=== PATIENT | female | born 1965 | race Caucasian/White ===

== ENCOUNTER 2019-11-14 14:08 | Inpatient (IN) | payer MEDICARE, OTHER ==
[~2019-11-14] VITALS: Ht 167.6 cm; Wt 81.6 kg
--- NOTE | 2019-11-14 14:21 | NUR ---
Patient brought in by ambulance from [facility] for c/o of pain with urination. Patient alert and oriented x 4. 0n 02 at 2L via NC. Patient c/o of pain on catheter insertion site and pain when urinating. Urine noted clear orange. Pt is bed bound. No acute distress.
--- NOTE | 2019-11-14 14:23 | NUR ---
Dr. Sapp at bedside examining pt.
[2019-11-14] MEDS ORDERED: IV NORMAL SALINE 1000 ML BAG IV ONE (14:30)
[2019-11-14 14:57] LABS: BASOPHILS # (AUTO) 0.1 K/uL (0.0-8.0); BASOPHILS % (AUTO) 0.6 % (0.0-2.0); EOSINOPHILS # (AUTO) 0.1 K/uL (0.0-0.7); EOSINOPHILS % (AUTO) 0.5 % (0.0-7.0); HEMATOCRIT 43.9 % (31.2-41.9); HEMOGLOBIN 14.5 g/dL (10.9-14.3); LYMPHOCYTES # (AUTO) 2.3 K/uL (20.0-40.0); LYMPHOCYTES % (AUTO) 12.6 % (20.5-51.5); MEAN CORPUSCULAR HEMOGLOBIN 29.2 uug (24.7-32.8); MEAN CORPUSCULAR HGB CONC 33 g/dL (32.3-35.6); MEAN CORPUSCULAR VOLUME 88.4 fL (75.5-95.3); MONOCYTES # (AUTO) 0.9 K/uL (2.0-10.0); MONOCYTES % (AUTO) 5.1 % (0.0-11.0); NEUTROPHILS # (AUTO) 15.1 K/uL (1.8-8.9); NEUTROPHILS % (AUTO) 81.2 % (38.5-71.5); PLATELET COUNT (AUTO) 292 K/uL (179-408); RED BLOOD CELL COUNT(AUTO) 4.97 MIL/uL (3.63-4.92); WHITE BLOOD COUNT (AUTO) 18.6 K/uL (3.8-11.8)
[2019-11-14 15:02] LABS: *BILIRUBIN,URIN NEGATIVE (NEGATIVE); *CLARITY,URINE CLEAR (CLEAR); *COLOR,URINE Orange (YELLOW); *KETONES,URINE TRACE (NEGATIVE); LEUKOCYTE ESTERASE ,URINE TRACE (NEGATIVE); NITRITE, URINE POSITIVE (NEGATIVE); PH,URINE 5.5 (5.0-8.0); UGLUCOSE TRACE (NEGATIVE)
[2019-11-14 15:09] LABS: BILIRUBIN,DIRECT 0.1 mg/dL (0.0-0.2); BILIRUBIN,TOTAL 0.3 mg/dL (0.2-1.0); CREATININE 0.7 mg/dL (0.6-1.3); POTASSIUM 4.6 mmol/L (3.5-5.1); TOTAL PROTEIN, SERUM 7.7 g/dL (6.4-8.2)
[2019-11-14 15:17] LABS: *BLOOD, URINE TRACE (NEGATIVE)
[2019-11-14] MEDS ORDERED: PIPERACILLIN/TAZOBACTAM/D5W 50 ML IV ONE (15:28)
[2019-11-14] MEDS ORDERED: VANCOMYCIN IV 200 ML ONE (15:29)
[2019-11-14] MEDS ORDERED: PIPERACILLIN SODIUM/TAZOBACTAM 3.375 G in IV DEXTROSE 5% 50 ML IV ONE (15:30)
[2019-11-14] MEDS ORDERED: VANCOMYCIN IV 1,000 MG in IV DEXTROSE 5% 250 ML IV ONE (15:30)
[2019-11-14 15:51] LABS: BACTERIA,URINE FEW /HPF (NONE SEEN); SQUAMOUS EPITHELIAL CELL,UR FEW /HPF (NONE SEEN)
--- NOTE | 2019-11-14 16:05 | NUR ---
Pt c/o of pain on Rt forearm IV site, IV site changed to Lt forearm by Lalito MONTERO
--- NOTE | 2019-11-14 16:07 | NUR ---
Per Dr. Sapp to not give Vancomycin and only give Zosyn. Per Dr. Sapp, "[place] doesn't want it."
--- NOTE | 2019-11-14 16:23 | NUR ---
Attempted to give report to tele, per Netta, the CN will take report and will "call you back."
--- NOTE | 2019-11-14 16:33 | NUR ---
SBAR report given to Kathryn in Telemetry unit.
--- NOTE | 2019-11-14 16:53 | NUR ---
Patient was transferred to Telemetry floor in stable condition.
[2019-11-14 17:00] VITALS: BP 143/76
[2019-11-14] MEDS ORDERED: ACETAMINOPHEN 325 MG TABLET PO PRN (18:30)
[2019-11-14] MEDS ORDERED: MAGNESIUM HYDROXIDE 30 ML LIQUID UDC PO PRN (18:30)
[2019-11-14] MEDS ORDERED: ONDANSETRON HCL 4 MG TABLET PO PRN (18:30)
[2019-11-14] MEDS ORDERED: FLEET ENEMA 133 ML BOTTLE RC PRN (18:30)
[2019-11-14] MEDS ORDERED: BISACODYL 10 MG SUPP.RECT RC PRN (18:30)
--- NOTE | 2019-11-14 18:34 | NUR ---
Patient was admitted from ER via [facility] with Diagnosis of UTI, early sepsis on telemetry under Dr. Simmons. patient is awake, alert and verbally responsive. No signs of distress noted. No SOB. on Oxygen at 2LPM via nasal Canula, No complain of pain or discomfort at this time. Head toe toe assessment was done. Skin is Intact. Kept comfortable. Kept the call light within easy reach. Will endorse to Oncoming Nurse.
--- NOTE | 2019-11-14 19:30 | NUR ---
Received patient awake and alert in bed, A/Ox4. No signs of acute distress noted. Complains of pain, no SOB. Heplock on the left forearm is intact and patent. Poe is intact, draining orange urine. Patient is bedbound, says she tries to get up with PT at facility, asked patient if she wants me to order PT, but patient says she feels weak right now so request to order PT when feeling better. Safety measures initiated. Bed is low and locked, call light within reach. Will continue to monitor.
[2019-11-14] MEDS: SENNOSIDES 1 TABLET PO SCH (20:39)
[2019-11-14] MEDS: DIAZEPAM 5 MG TABLET PO SCH (20:39)
[2019-11-14] MEDS: CARISOPRODOL 350 MG TABLET PO SCH (20:39)
[2019-11-14] MEDS: CEFTRIAXONE 1 G in IV DEXTROSE 5% 50 ML IV SCH (20:50)
[2019-11-14] MEDS ORDERED: DIAZEPAM 5 MG PO SCH (21:00)
[2019-11-14 21:28] VITALS: BP 136/88
[2019-11-14] MEDS: HYDROCODONE/APAP 5-325MG TABLET PO PRN (22:03)
[2019-11-15 00:56] VITALS: BP 136/74
[2019-11-15 04:39] VITALS: BP 129/63
[2019-11-15] MEDS: PANTOPRAZOLE SODIUM 40 MG TABLET.DR PO SCH (06:24)
[2019-11-15 06:52] LABS: BASOPHILS # (AUTO) 0.1 K/uL (0.0-8.0); BASOPHILS % (AUTO) 0.9 % (0.0-2.0); EOSINOPHILS # (AUTO) 0.1 K/uL (0.0-0.7); EOSINOPHILS % (AUTO) 1.1 % (0.0-7.0); HEMATOCRIT 40.2 % (31.2-41.9); HEMOGLOBIN 12.9 g/dL (10.9-14.3); LYMPHOCYTES # (AUTO) 4.6 K/uL (20.0-40.0); LYMPHOCYTES % (AUTO) 33.5 % (20.5-51.5); MEAN CORPUSCULAR HEMOGLOBIN 28.7 uug (24.7-32.8); MEAN CORPUSCULAR HGB CONC 32 g/dL (32.3-35.6); MEAN CORPUSCULAR VOLUME 89.2 fL (75.5-95.3); MONOCYTES # (AUTO) 0.9 K/uL (2.0-10.0); MONOCYTES % (AUTO) 6.4 % (0.0-11.0); NEUTROPHILS # (AUTO) 7.9 K/uL (1.8-8.9); NEUTROPHILS % (AUTO) 58.1 % (38.5-71.5); PLATELET COUNT (AUTO) 263 K/uL (179-408); RED BLOOD CELL COUNT(AUTO) 4.51 MIL/uL (3.63-4.92); WHITE BLOOD COUNT (AUTO) 13.6 K/uL (3.8-11.8)
[2019-11-15 07:17] LABS: THYROID STIMULATING HORMONE 2.606 mIU/mL (0.358-3.740)
[2019-11-15 07:19] LABS: BILIRUBIN,TOTAL 0.2 mg/dL (0.2-1.0); CREATININE 0.5 mg/dL (0.6-1.3); MAGNESIUM 2.1 mg/dL (1.8-2.4); PHOSPHOROUS 4.2 mg/dL (2.5-4.9); TOTAL PROTEIN, SERUM 6.5 g/dL (6.4-8.2)
[2019-11-15 07:58] VITALS: BP 148/81
--- NOTE | 2019-11-15 08:00 | NUR ---
Pt alert and oriented x 4. Pt is in no acute distress. Discussed plan of care with patient re: fall precaution and aspiration precaution. Call light is within reach.
[2019-11-15] MEDS: ACIDOPHILUS/BULGARICUS CHEW TAB PO SCH (08:19)
[2019-11-15] MEDS: DIAZEPAM 5 MG TABLET PO SCH ×4 (08:20→20:07)
[2019-11-15] MEDS: SERTRALINE HCL 50 MG TABLET PO SCH (08:20)
[2019-11-15] MEDS: CYCLOBENZAPRINE HCL 10 MG TABLET PO SCH ×2 (08:20→17:04)
[2019-11-15] MEDS: MULTIVIT, IRON, MIN NO. 8, FA TABLET PO SCH (08:20)
[2019-11-15] MEDS: METOPROLOL SUCCINATE XL 50 MG TAB.SR.24H PO SCH (08:24)
[2019-11-15] MEDS: DOCUSATE SODIUM 100 MG CAPSULE PO SCH ×2 (08:24→17:04)
[2019-11-15 08:25] LABS: LYMPHOCYTES % (MANUAL) 34 % (20-40); MONOCYTES % (MANUAL) 5 % (2-10); NEUTROPHILS % (MANUAL) 61 % (42-75)
[2019-11-15] MEDS: PHENAZOPYRIDINE HCL 100 MG TABLET PO SCH ×2 (08:56→20:06)
[2019-11-15] MEDS ORDERED: Medication Not On Formulary EA (Multivitamins W-Minerals (Multivitamin With Minerals) 1 PO SCH (09:00)
[2019-11-15] MEDS ORDERED: LACTOBACILLUS ACIDOPHILUS E PO SCH (09:00)
[2019-11-15] MEDS ORDERED: Medication Not On Formulary EA (Cyclobenzaprine Hcl 5 MG) PO SCH (09:00)
[2019-11-15] MEDS ORDERED: Medication Not On Formulary EA (Sertraline Hcl (Zoloft) 25 MG) PO SCH (09:00)
[2019-11-15 11:58] VITALS: BP 149/85
[2019-11-15] MEDS: FLUTICASONE PROP NASAL SPRAY 16 GM BOTTLE NS SCH (14:01)
[2019-11-15 15:51] VITALS: BP 144/77
--- NOTE | 2019-11-15 18:00 | NUR ---
Pt is in no acute distress. Call light is within reach.
--- NOTE | 2019-11-15 18:30 | NUR ---
Pt vomiting undigested food. Gave zofran for vomiting. Will continue to monitor patient. Addendum: 11/15/19 at 1931 by KIM ARCE RN WRONG PATIENT
[2019-11-15] MEDS: CEFTRIAXONE 1 G in IV DEXTROSE 5% 50 ML IV SCH (19:47)
[2019-11-15] MEDS: ATORVASTATIN 20 MG TABLET PO SCH (20:06)
[2019-11-15] MEDS: CARISOPRODOL 350 MG TABLET PO SCH (20:06)
[2019-11-15] MEDS: SENNOSIDES 1 TABLET PO SCH (20:06)
[2019-11-15 20:27] VITALS: BP 115/55
[2019-11-16] MEDS: HYDROCODONE/APAP 5-325MG TABLET PO PRN ×2 (04:22→20:29)
[2019-11-16 05:06] VITALS: BP 128/68
[2019-11-16] MEDS: PANTOPRAZOLE SODIUM 40 MG TABLET.DR PO SCH (06:08)
[2019-11-16 06:47] LABS: BASOPHILS # (AUTO) 0.1 K/uL (0.0-8.0); BASOPHILS % (AUTO) 0.9 % (0.0-2.0); EOSINOPHILS # (AUTO) 0.2 K/uL (0.0-0.7); EOSINOPHILS % (AUTO) 1.9 % (0.0-7.0); HEMATOCRIT 41.7 % (31.2-41.9); HEMOGLOBIN 13.5 g/dL (10.9-14.3); LYMPHOCYTES % (AUTO) 24.7 % (20.5-51.5); MEAN CORPUSCULAR HGB CONC 32 g/dL (32.3-35.6); MEAN CORPUSCULAR VOLUME 89.5 fL (75.5-95.3); MONOCYTES # (AUTO) 0.8 K/uL (2.0-10.0); NEUTROPHILS # (AUTO) 7.9 K/uL (1.8-8.9); NEUTROPHILS % (AUTO) 65.5 % (38.5-71.5); PLATELET COUNT (AUTO) 247 K/uL (179-408); RED BLOOD CELL COUNT(AUTO) 4.66 MIL/uL (3.63-4.92); WHITE BLOOD COUNT (AUTO) 12.1 K/uL (3.8-11.8)
[2019-11-16 06:53] LABS: BILIRUBIN,TOTAL 0.3 mg/dL (0.2-1.0); CREATININE 0.6 mg/dL (0.6-1.3); PHOSPHOROUS 4.8 mg/dL (2.5-4.9); TOTAL PROTEIN, SERUM 6.6 g/dL (6.4-8.2)
[2019-11-16] MEDS: CYCLOBENZAPRINE HCL 10 MG TABLET PO SCH ×2 (10:23→17:15)
[2019-11-16] MEDS: DOCUSATE SODIUM 100 MG CAPSULE PO SCH ×2 (10:23→17:15)
[2019-11-16] MEDS: ACIDOPHILUS/BULGARICUS CHEW TAB PO SCH (10:24)
[2019-11-16] MEDS: PHENAZOPYRIDINE HCL 100 MG TABLET PO SCH ×2 (10:25→20:30)
[2019-11-16] MEDS: MULTIVIT, IRON, MIN NO. 8, FA TABLET PO SCH (10:25)
[2019-11-16] MEDS: METOPROLOL SUCCINATE XL 50 MG TAB.SR.24H PO SCH (10:26)
[2019-11-16] MEDS: DIAZEPAM 5 MG TABLET PO SCH ×4 (10:27→20:29)
[2019-11-16] MEDS: FLUTICASONE PROP NASAL SPRAY 16 GM BOTTLE NS SCH (10:28)
[2019-11-16] MEDS: SERTRALINE HCL 50 MG TABLET PO SCH (10:28)
[2019-11-16 11:36] VITALS: BP 140/72
[2019-11-16 16:17] VITALS: BP 141/73
--- NOTE | 2019-11-16 19:00 | NUR ---
PATIENT ALERT ORIENTED, NO SOB NO CHEST PAIN. PATIENT HAS NO COMPLAIN OF PAIN AT THIS TIME. PATIENT RAMESH CATH PATENT DRAINING WITH YELLOW COLOR URINE IN MODERATE AMOUNT. CONT TO MONITOR.
--- NOTE | 2019-11-16 20:24 | NUR ---
PATIENT IS POSITIVE FOR MRSA OF BOTH NARES, PATIENT WILL BE PUT ON CONTACT ISOLATION.
[2019-11-16] MEDS: CARISOPRODOL 350 MG TABLET PO SCH (20:29)
[2019-11-16] MEDS: SULFAMETH/TRIMETH 800/160 MG TABLET PO SCH (20:29)
[2019-11-16] MEDS: SENNOSIDES 1 TABLET PO SCH (20:29)
[2019-11-16] MEDS: ATORVASTATIN 20 MG TABLET PO SCH (20:29)
[2019-11-16 20:45] VITALS: BP 152/85
--- NOTE | 2019-11-16 21:18 | NUR ---
NOTIFY DR MARTÍNEZ LAB RESULTS, BILATERAL NARES POSITIVE FOR MRSA WITH NO NEW ORDERS.
[2019-11-17] MEDS: PANTOPRAZOLE SODIUM 40 MG TABLET.DR PO SCH (06:06)
--- NOTE | 2019-11-17 06:41 | NUR ---
PATIENT ALERT ORIENTED, NO SOB NO CHEST PAIN. PATIENT RAMESH CATH DRAINING WITH BRIGHT YELLOW COLOR URINE DUE TO PYRIUM MEDICATIONS. PATIENT WAS KEPT CLEAN DRY AND COMFORTABLE.
[2019-11-17 07:00] LABS: BASOPHILS # (AUTO) 0.1 K/uL (0.0-8.0); BASOPHILS % (AUTO) 1.1 % (0.0-2.0); EOSINOPHILS # (AUTO) 0.3 K/uL (0.0-0.7); EOSINOPHILS % (AUTO) 2.9 % (0.0-7.0); HEMATOCRIT 40.4 % (31.2-41.9); HEMOGLOBIN 13.4 g/dL (10.9-14.3); LYMPHOCYTES # (AUTO) 2.9 K/uL (20.0-40.0); LYMPHOCYTES % (AUTO) 29.8 % (20.5-51.5); MEAN CORPUSCULAR HEMOGLOBIN 29.2 uug (24.7-32.8); MEAN CORPUSCULAR HGB CONC 33 g/dL (32.3-35.6); MEAN CORPUSCULAR VOLUME 88.2 fL (75.5-95.3); MONOCYTES # (AUTO) 0.9 K/uL (2.0-10.0); MONOCYTES % (AUTO) 9.4 % (0.0-11.0); NEUTROPHILS # (AUTO) 5.6 K/uL (1.8-8.9); NEUTROPHILS % (AUTO) 56.8 % (38.5-71.5); PLATELET COUNT (AUTO) 255 K/uL (179-408); RED BLOOD CELL COUNT(AUTO) 4.58 MIL/uL (3.63-4.92); WHITE BLOOD COUNT (AUTO) 9.8 K/uL (3.8-11.8)
[2019-11-17] MEDS: HYDROCODONE/APAP 5-325MG TABLET PO PRN ×2 (07:01→17:22)
[2019-11-17 07:16] LABS: CREATININE 0.6 mg/dL (0.6-1.3); PHOSPHOROUS 4.4 mg/dL (2.5-4.9); POTASSIUM 4.2 mmol/L (3.5-5.1)
--- NOTE | 2019-11-17 08:00 | NUR ---
Pt is in on isolation for positive MRSA. Will get hold of DR COSTA for bactroban order. PT is in no acute distress. Call light is within reach.
[2019-11-17] MEDS: DIAZEPAM 5 MG TABLET PO SCH ×4 (09:11→20:14)
[2019-11-17] MEDS: SULFAMETH/TRIMETH 800/160 MG TABLET PO SCH ×2 (09:13→20:14)
[2019-11-17] MEDS: MULTIVIT, IRON, MIN NO. 8, FA TABLET PO SCH (09:13)
[2019-11-17] MEDS: ACIDOPHILUS/BULGARICUS CHEW TAB PO SCH (09:13)
[2019-11-17] MEDS: CYCLOBENZAPRINE HCL 10 MG TABLET PO SCH ×2 (09:13→17:22)
[2019-11-17] MEDS: SERTRALINE HCL 50 MG TABLET PO SCH (09:13)
[2019-11-17] MEDS: DOCUSATE SODIUM 100 MG CAPSULE PO SCH ×2 (09:13→17:22)
[2019-11-17] MEDS: METOPROLOL SUCCINATE XL 50 MG TAB.SR.24H PO SCH (09:18)
[2019-11-17] MEDS: FLUTICASONE PROP NASAL SPRAY 16 GM BOTTLE NS SCH (09:23)
--- NOTE | 2019-11-17 10:00 | NUR ---
Dr JULISSA Muñoz is here to see patient. PT is for discharge today if cleared by neurologist DR CLEVELAND. Discharge on hold until cleared by neurologist. PT is in no acute distress.
[2019-11-17 11:30] VITALS: BP 150/73
[2019-11-17 15:46] VITALS: BP 115/74
--- NOTE | 2019-11-17 18:29 | NUR ---
Dr guajardo cleared pt for neurology stand point. Case management spoke with patient for any clarification pt need about her discharge. 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 Pt is in no acute distress. Call light is within reach.
[2019-11-17] MEDS: ATORVASTATIN 20 MG TABLET PO SCH (20:14)
[2019-11-17] MEDS: CARISOPRODOL 350 MG TABLET PO SCH (20:14)
[2019-11-17] MEDS: SENNOSIDES 1 TABLET PO SCH (20:14)
[2019-11-17 20:54] VITALS: BP 146/91
[2019-11-17] MEDS ORDERED: MUPIROCIN 2% OINT 22 GM TUBE NS SCH (21:00)
--- NOTE | 2019-11-17 21:02 | NUR ---
PATIENT DISCHARGE TO [facility], REPORT GIVEN TO LILIBETH MONTERO. PATIENT TOOK ALL BELONGINGS INCLUDING HER MEDICATION FROM PHARMACY. PATIENT ALERT ORIENTED, RAMESH CATH INTACT, IV LINE WAS REMOVED.
--- NOTE | 2019-11-17 21:05 | NUR ---
[facility] STAFF NOTIFIED THAT ALL MEDICATIONS DUE AT 2100 PLUS ANTIBIOTIC WAS GIVEN AND PAIN MEDS WAS GIVEN ALSO.
== END 2019-11-17 21:00 | DRG 872 ==
LOC: ER 14:18 → TELE3 16:38 → MEDSURG3 11-16 09:30
PROVIDERS: ADMIT Internal Medicine; ATTEND Internal Medicine
DX: A41.01 Sepsis due to Methicillin susceptible Staphylococcus aureus (principal); N39.0 Urinary tract infection, site not specified; D68.59 Other primary thrombophilia; Z90.710 Acquired absence of both cervix and uterus; R32 Unspecified urinary incontinence; B95.61 Methicillin susceptible Staphylococcus aureus infection as the cause of diseases classified elsewhere; K21.9 Gastro-esophageal reflux disease without esophagitis; G43.909 Migraine, unspecified, not intractable, without status migrainosus; Z74.09 Other reduced mobility; E66.01 Morbid (severe) obesity due to excess calories; R33.9 Retention of urine, unspecified; E78.5 Hyperlipidemia, unspecified; K59.09 Other constipation; G89.29 Other chronic pain; R26.2 Difficulty in walking, not elsewhere classified; Z74.01 Bed confinement status; Z79.899 Other long term (current) drug therapy; R77.1 Abnormality of globulin; I10 Essential (primary) hypertension; M51.36 Other intervertebral disc degeneration, lumbar region
CPT/HCPCS: 36415; 70030-TC; 71045; 72131; 83605; 83690; 83735; 84100; 84443; 85025; 87040; 87077; 87086; 87400; 93005; 93307; A4663; G0378; J0696; J2543; J3370; J3535; J7030; J7050; J7060

== ENCOUNTER 2019-11-28 16:05 | Inpatient (IN) | payer MEDICARE ==
[~2019-11-28] VITALS: Ht 162.6 cm; Wt 103.0 kg
[~2019-11-28 16:05] MED LIST: ACET325T53 PO; ASCO500C18 PO; BETA15CR TP; BISA10SU12 RC; CARI350T PO; CRAN450C PO; CYCL5TAB PO; DIAZ5SOL2 PO; DOCU-141 PO; FLUT9.9S EA NOSTRIL; FURO-151 PO; GUAI237L83 PO; HYDR-4384 PO; IBUP-1955 PO; LACT1CAP89 PO; LIDO30AD10 TD; LOSA100T31 PO; MAGN400O6 PO; METO-357 PO; MULT-213 PO; NA P133E RC; OCEAN EA NOSTRIL; OMEP40CA PO; ONDA4TAB5 PO; SENN-261 PO; SERT25TA PO; Sulfameth/Trimeth 800/160 Mg PO
--- NOTE | 2019-11-28 16:22 | NUR ---
PT IS IN ROOM #2B. DR BERKOWITZ EVALUATED THE PT.
[2019-11-28 16:43] LABS: BASOPHILS # (AUTO) 0.1 K/uL (0.0-8.0); BASOPHILS % (AUTO) 1.3 % (0.0-2.0); EOSINOPHILS # (AUTO) 0.4 K/uL (0.0-0.7); HEMATOCRIT 40.1 % (31.2-41.9); LYMPHOCYTES % (AUTO) 35.1 % (20.5-51.5); MEAN CORPUSCULAR HEMOGLOBIN 28.6 uug (24.7-32.8); MEAN CORPUSCULAR HGB CONC 32 g/dL (32.3-35.6); MEAN CORPUSCULAR VOLUME 88.5 fL (75.5-95.3); MONOCYTES # (AUTO) 0.5 K/uL (2.0-10.0); MONOCYTES % (AUTO) 6.3 % (0.0-11.0); NEUTROPHILS # (AUTO) 4.5 K/uL (1.8-8.9); NEUTROPHILS % (AUTO) 52.3 % (38.5-71.5); PLATELET COUNT (AUTO) 264 K/uL (179-408); RED BLOOD CELL COUNT(AUTO) 4.53 MIL/uL (3.63-4.92); WHITE BLOOD COUNT (AUTO) 8.5 K/uL (3.8-11.8)
[2019-11-28 16:54] LABS: BILIRUBIN,DIRECT 0.1 mg/dL (0.0-0.2); BILIRUBIN,TOTAL 0.4 mg/dL (0.2-1.0); CREATININE 0.8 mg/dL (0.6-1.3); POTASSIUM 3.6 mmol/L (3.5-5.1); TOTAL PROTEIN, SERUM 6.8 g/dL (6.4-8.2)
[2019-11-28] MEDS ORDERED: ATOR10TA PO (16:54)
[2019-11-28] MEDS ORDERED: OMEG-153 PO (16:54)
[2019-11-28] MEDS ORDERED: FLAX100031 PO (16:54)
[2019-11-28] MEDS ORDERED: ESTR50GE VG (16:54)
[2019-11-28] MEDS ORDERED: GABA-532 PO (16:54)
[2019-11-28] MEDS ORDERED: CELE200C PO (16:54)
[2019-11-28] MEDS ORDERED: KETOROLAC TROMETHAMINE 30 MG INJ IM ONE (17:00)
[2019-11-28] MEDS ORDERED: KETOROLAC TROMETHAMINE 30 MG INJ ONE (17:09)
[2019-11-28 17:56] LABS: *BILIRUBIN,URIN NEGATIVE (NEGATIVE); *BLOOD, URINE NEGATIVE (NEGATIVE); *COLOR,URINE YELLOW (YELLOW); *KETONES,URINE NEGATIVE (NEGATIVE); *UROBILINOGEN,URINE 0.2 E.U./dl (NORMAL); LEUKOCYTE ESTERASE ,URINE 1+ (NEGATIVE); NITRITE, URINE NEGATIVE (NEGATIVE); UGLUCOSE NEGATIVE (NEGATIVE)
[2019-11-28 17:57] LABS: *CLARITY,URINE HAZY (CLEAR)
[2019-11-28 18:02] LABS: BACTERIA,URINE FEW /HPF (NONE SEEN); RBC,URINE 0-3 /HPF (0-3); SQUAMOUS EPITHELIAL CELL,UR MODERATE /HPF (NONE SEEN)
[2019-11-28] MEDS ORDERED: VANCOMYCIN IV 1,000 MG in IV DEXTROSE 5% 250 ML IV ONE (18:15)
[2019-11-28] MEDS ORDERED: VANCOMYCIN IV 200 ML ONE (18:24)
[2019-11-28] MEDS ORDERED: IV NORMAL SALINE 1000 ML BAG IV ONE (18:30)
[2019-11-28] MEDS ORDERED: MAGNESIUM HYDROXIDE 30 ML LIQUID UDC PO PRN (20:00)
[2019-11-28] MEDS ORDERED: BISACODYL 10 MG SUPP.RECT RC PRN (20:00)
[2019-11-28] MEDS ORDERED: FLEET ENEMA 133 ML BOTTLE RC PRN (20:00)
[2019-11-28] MEDS ORDERED: DIAZEPAM 5 MG TABLET PO PRN (20:15)
--- NOTE | 2019-11-28 20:18 | NUR ---
REPORT WAS GIVEN TO RN M/S. PT WAS TRANSFERED TO ROOM #316.
[2019-11-28] MEDS ORDERED: DIAZEPAM 5 MG TABLET ONE (20:25)
[2019-11-28 20:49] VITALS: BP 144/78
[2019-11-28] MEDS ORDERED: ATORVASTATIN 10 MG TABLET PO SCH (21:00)
[2019-11-28] MEDS: CARISOPRODOL 350 MG TABLET PO SCH (21:21)
[2019-11-28] MEDS: CELECOXIB 200 MG CAPSULE PO SCH (21:21)
[2019-11-28] MEDS: HYDROCODONE/APAP 10-325 MG TABLET PO PRN (21:23)
[2019-11-28] MEDS: SENNOSIDES 1 TABLET PO SCH (21:23)
[2019-11-29 04:58] VITALS: BP 124/80
--- NOTE | 2019-11-29 05:54 | NUR ---
TEXTED DR. KENYON FOR MRI APPROVAL.
[2019-11-29 06:26] LABS: BASOPHILS # (AUTO) 0.1 K/uL (0.0-8.0); BASOPHILS % (AUTO) 1.1 % (0.0-2.0); EOSINOPHILS # (AUTO) 0.4 K/uL (0.0-0.7); EOSINOPHILS % (AUTO) 5.6 % (0.0-7.0); HEMATOCRIT 35.3 % (31.2-41.9); HEMOGLOBIN 11.6 g/dL (10.9-14.3); LYMPHOCYTES # (AUTO) 2.6 K/uL (20.0-40.0); LYMPHOCYTES % (AUTO) 40.7 % (20.5-51.5); MEAN CORPUSCULAR HEMOGLOBIN 29.3 uug (24.7-32.8); MEAN CORPUSCULAR HGB CONC 33 g/dL (32.3-35.6); MEAN CORPUSCULAR VOLUME 89.1 fL (75.5-95.3); MONOCYTES # (AUTO) 0.4 K/uL (2.0-10.0); MONOCYTES % (AUTO) 6.5 % (0.0-11.0); NEUTROPHILS # (AUTO) 2.9 K/uL (1.8-8.9); NEUTROPHILS % (AUTO) 46.1 % (38.5-71.5); PLATELET COUNT (AUTO) 241 K/uL (179-408); RED BLOOD CELL COUNT(AUTO) 3.97 MIL/uL (3.63-4.92); WHITE BLOOD COUNT (AUTO) 6.3 K/uL (3.8-11.8)
[2019-11-29] MEDS: HYDROCODONE/APAP 10-325 MG TABLET PO PRN ×3 (06:30→22:54)
[2019-11-29] MEDS: PANTOPRAZOLE SODIUM 40 MG TABLET.DR PO SCH (06:30)
[2019-11-29 06:43] LABS: BILIRUBIN,TOTAL 0.2 mg/dL (0.2-1.0); CREATININE 0.7 mg/dL (0.6-1.3); MAGNESIUM 1.8 mg/dL (1.8-2.4); POTASSIUM 3.9 mmol/L (3.5-5.1); TOTAL PROTEIN, SERUM 5.9 g/dL (6.4-8.2)
[2019-11-29] MEDS: FUROSEMIDE 40 MG TABLET PO SCH (08:38)
[2019-11-29] MEDS: CELECOXIB 200 MG CAPSULE PO SCH ×2 (08:38→20:26)
[2019-11-29] MEDS: OMEGA-3 FATTY ACIDS/FISH OIL CAPSULE PO SCH (08:38)
[2019-11-29] MEDS: CYCLOBENZAPRINE HCL 10 MG TABLET PO SCH ×2 (08:39→16:50)
[2019-11-29] MEDS: GABAPENTIN 100 MG CAPSULE PO SCH ×3 (08:39→16:51)
[2019-11-29] MEDS: MULTIVITAMINS,THERAPEUTIC TABLET PO SCH (08:39)
[2019-11-29] MEDS: SERTRALINE HCL 50 MG TABLET PO SCH (08:40)
[2019-11-29] MEDS: LIDOCAINE 5% PATCH TD SCH (08:41)
[2019-11-29] MEDS: DOCUSATE SODIUM 100 MG CAPSULE PO SCH ×2 (08:41→16:51)
[2019-11-29] MEDS: METOPROLOL SUCCINATE XL 50 MG TAB.SR.24H PO SCH (08:49)
[2019-11-29] MEDS: LOSARTAN POTASSIUM 50 MG TABLET PO SCH (08:50)
[2019-11-29] MEDS ORDERED: Medication Not On Formulary EA (Salmon Oil/Omega-3 Fatty Acids (Fish Oil 500 Mg Softgel) PO SCH (09:00)
--- NOTE | 2019-11-29 09:00 | NUR ---
PATIENT IS IN BED AWAKE ALERT AND ORIENTED STATED COMFORTABLE DUE TO THE FACT THAT SHE HAS JUST RECEIVED PAIN MEDICATIONS ABOUT 0630 ON O2 WITH NO SOB AT THIS TIME.SHE HAS AN INDWELLING RAMESH CATH STATED THAT SHE HAS CHRONIC URINARY RETENTION AND HER RAMESH WAS CHANGED YESTERDAY AT THE SNF.CALL LIGHTS AND PERSONAL BELONGINGS ARE WITHIN EASY REACH AT THIS TIME MADE COMFORTABLE AND WILL CONTINUE TO OBSERVE.
[2019-11-29 12:00] VITALS: BP 154/80
--- NOTE | 2019-11-29 12:35 | NUR ---
PATIENT STATED FEELS LIKE SHE NEEDED HER HAND HELD NEBULIZER O2 SAT CHECKED AND ITS 97 PERCENT AND BREATH SOUNDS ARE CLEAR SHE HAS NO ORDER FOR TX SO DR SALCEDO NOTIFIED STATED WILL SEE PATIENT.
[2019-11-29] MEDS: PHENAZOPYRIDINE HCL 100 MG TABLET PO SCH ×2 (12:58→20:35)
[2019-11-29 19:44] VITALS: BP 144/73
--- NOTE | 2019-11-29 20:00 | NUR ---
Received patient, awake alert and fully oriented. Not in active distress. Able to verbalize needs, states that pain is 10/10. She explained that her pain is mostly on the lower back, but is also feeling pressure on the bladder. Pt is aware that her narcotic for severe pain is not yet due, but offered Tylenol and hot packs, patient agreed. Will administer as ordered, along with routine anti-spasmodics ordered. Pt with several health concerns, active listening provided and questions answered. Pt is asking about laboratory results, informed her that nothing of urgent importance at this time, and MD will discuss with her fully. Will continue to monitor this patient hourly and manage pain as needed.
[2019-11-29] MEDS: ATORVASTATIN 20 MG TABLET PO SCH (20:26)
[2019-11-29] MEDS: CARISOPRODOL 350 MG TABLET PO SCH (20:26)
[2019-11-29] MEDS: ACETAMINOPHEN 325 MG TABLET PO PRN (20:26)
[2019-11-29] MEDS: SENNOSIDES 1 TABLET PO SCH (20:27)
[2019-11-29] MEDS ORDERED: PHENAZOPYRIDINE HCL 100 MG TABLET ONE (20:31)
[2019-11-30] MEDS: ACETAMINOPHEN 325 MG TABLET PO PRN (02:06)
[2019-11-30 04:56] VITALS: BP 121/65
[2019-11-30] MEDS: HYDROCODONE/APAP 10-325 MG TABLET PO PRN ×2 (05:00→12:19)
[2019-11-30] MEDS: PANTOPRAZOLE SODIUM 40 MG TABLET.DR PO SCH (06:02)
[2019-11-30] MEDS: CELECOXIB 200 MG CAPSULE PO SCH ×2 (10:01→20:19)
[2019-11-30] MEDS: DOCUSATE SODIUM 100 MG CAPSULE PO SCH ×2 (10:01→17:11)
[2019-11-30] MEDS: FUROSEMIDE 40 MG TABLET PO SCH (10:02)
[2019-11-30] MEDS: LOSARTAN POTASSIUM 50 MG TABLET PO SCH (10:02)
[2019-11-30] MEDS: CYCLOBENZAPRINE HCL 10 MG TABLET PO SCH ×2 (10:02→17:11)
[2019-11-30] MEDS: GABAPENTIN 100 MG CAPSULE PO SCH ×3 (10:02→17:11)
[2019-11-30] MEDS: OMEGA-3 FATTY ACIDS/FISH OIL CAPSULE PO SCH (10:02)
[2019-11-30] MEDS: MULTIVITAMINS,THERAPEUTIC TABLET PO SCH (10:03)
[2019-11-30] MEDS: PHENAZOPYRIDINE HCL 100 MG TABLET PO SCH ×2 (10:03→20:19)
[2019-11-30] MEDS: METOPROLOL SUCCINATE XL 50 MG TAB.SR.24H PO SCH (10:03)
[2019-11-30] MEDS: SERTRALINE HCL 50 MG TABLET PO SCH (10:04)
[2019-11-30] MEDS: LIDOCAINE 5% PATCH TD SCH (10:04)
--- NOTE | 2019-11-30 10:20 | NUR ---
Patient transported to [facility] for MRI via ambulance
--- NOTE | 2019-11-30 12:15 | NUR ---
Returned from MRI. Vital signs stable. C/o of back pain. Medicated with norco. Tolerating diet.
[2019-11-30 15:42] VITALS: BP 124/70
--- NOTE | 2019-11-30 19:20 | NUR ---
Received patient lying in bed. AAOX4. In no acute distress. No signs or symptoms of pain or SOB. On O2 at 2LPM via NC in place. O2 sat at 96%. IV site on right FA intact and patent. Poe catheter intact and draining via gravity. Safety measure initiated and call graff within reached.
[2019-11-30] MEDS: ATORVASTATIN 20 MG TABLET PO SCH (20:19)
[2019-11-30] MEDS: CARISOPRODOL 350 MG TABLET PO SCH (20:19)
[2019-11-30] MEDS: SENNOSIDES 1 TABLET PO SCH (20:19)
[2019-11-30] MEDS: SULFAMETH/TRIMETH 800/160 MG TABLET PO SCH (20:19)
[2019-11-30 20:41] VITALS: BP 97/79
[2019-12-01] MEDS: PANTOPRAZOLE SODIUM 40 MG TABLET.DR PO SCH (06:01)
--- NOTE | 2019-12-01 06:15 | NUR ---
Slept well last night. In no acute distress. No signs or symptoms of pain or SOB. O2 at 2LPM via NC in place. O2 sat at 96%. No adverse reaction noted from PO ABX. IV site on right FA intact and patent. Needs attended to and met. Safety measure maintained and call graff within reached.
[2019-12-01] MEDS: HYDROCODONE/APAP 10-325 MG TABLET PO PRN ×2 (06:26→16:12)
[2019-12-01 06:31] VITALS: BP 110/54
[2019-12-01 06:58] LABS: BASOPHILS # (AUTO) 0.1 K/uL (0.0-8.0); BASOPHILS % (AUTO) 1.4 % (0.0-2.0); EOSINOPHILS # (AUTO) 0.4 K/uL (0.0-0.7); EOSINOPHILS % (AUTO) 5.8 % (0.0-7.0); HEMATOCRIT 38.5 % (31.2-41.9); HEMOGLOBIN 12.5 g/dL (10.9-14.3); LYMPHOCYTES # (AUTO) 2.6 K/uL (20.0-40.0); LYMPHOCYTES % (AUTO) 43.5 % (20.5-51.5); MEAN CORPUSCULAR HEMOGLOBIN 29.1 uug (24.7-32.8); MEAN CORPUSCULAR HGB CONC 33 g/dL (32.3-35.6); MEAN CORPUSCULAR VOLUME 89.5 fL (75.5-95.3); MONOCYTES # (AUTO) 0.5 K/uL (2.0-10.0); MONOCYTES % (AUTO) 8.6 % (0.0-11.0); NEUTROPHILS # (AUTO) 2.5 K/uL (1.8-8.9); NEUTROPHILS % (AUTO) 40.7 % (38.5-71.5); PLATELET COUNT (AUTO) 228 K/uL (179-408); RED BLOOD CELL COUNT(AUTO) 4.31 MIL/uL (3.63-4.92); WHITE BLOOD COUNT (AUTO) 6.1 K/uL (3.8-11.8)
[2019-12-01 07:09] LABS: CREATININE 0.6 mg/dL (0.6-1.3); MAGNESIUM 1.8 mg/dL (1.8-2.4); PHOSPHOROUS 4.1 mg/dL (2.5-4.9)
[2019-12-01] MEDS: SULFAMETH/TRIMETH 800/160 MG TABLET PO SCH (09:59)
[2019-12-01] MEDS: LOSARTAN POTASSIUM 50 MG TABLET PO SCH (10:00)
[2019-12-01] MEDS: DOCUSATE SODIUM 100 MG CAPSULE PO SCH (10:00)
[2019-12-01] MEDS: CELECOXIB 200 MG CAPSULE PO SCH (10:00)
[2019-12-01] MEDS: FUROSEMIDE 40 MG TABLET PO SCH (10:01)
[2019-12-01] MEDS: GABAPENTIN 100 MG CAPSULE PO SCH ×2 (10:01→12:26)
[2019-12-01] MEDS: CYCLOBENZAPRINE HCL 10 MG TABLET PO SCH (10:01)
[2019-12-01] MEDS: OMEGA-3 FATTY ACIDS/FISH OIL CAPSULE PO SCH (10:01)
[2019-12-01] MEDS: PHENAZOPYRIDINE HCL 100 MG TABLET PO SCH (10:02)
[2019-12-01] MEDS: MULTIVITAMINS,THERAPEUTIC TABLET PO SCH (10:02)
[2019-12-01] MEDS: METOPROLOL SUCCINATE XL 50 MG TAB.SR.24H PO SCH (10:03)
[2019-12-01] MEDS: SERTRALINE HCL 50 MG TABLET PO SCH (10:03)
[2019-12-01] MEDS: LIDOCAINE 5% PATCH TD SCH (10:03)
[2019-12-01] MEDS ORDERED: ONDANSETRON 4 MG/2 ML VIAL IV PRN (11:00)
[2019-12-01 11:32] VITALS: BP 123/74
[2019-12-01] MEDS ORDERED: Sulfameth/Trimeth 800/160 Mg PO (13:05)
[2019-12-01 15:39] VITALS: BP 122/68
--- NOTE | 2019-12-01 16:50 | NUR ---
Home instructions reviewed with patient. IV isabel'ann. Pharmacist in to review home meds. Transferred to [facility] via ambulance. Vitals stable.
== END 2019-12-01 16:50 | DRG 690 ==
LOC: ER 16:08 → MEDSURG3 18:55
PROVIDERS: ADMIT Internal Medicine; ATTEND Internal Medicine
DX: N39.0 Urinary tract infection, site not specified (principal); D68.59 Other primary thrombophilia; M54.9 Dorsalgia, unspecified; B95.61 Methicillin susceptible Staphylococcus aureus infection as the cause of diseases classified elsewhere; Z74.09 Other reduced mobility; E66.01 Morbid (severe) obesity due to excess calories; R33.9 Retention of urine, unspecified; E78.5 Hyperlipidemia, unspecified; G89.29 Other chronic pain; Z90.710 Acquired absence of both cervix and uterus; M43.06 Spondylolysis, lumbar region; K21.9 Gastro-esophageal reflux disease without esophagitis; N12 Tubulo-interstitial nephritis, not specified as acute or chronic; Z79.899 Other long term (current) drug therapy; Z86.14 Personal history of Methicillin resistant Staphylococcus aureus infection; Z87.440 Personal history of urinary (tract) infections; K59.09 Other constipation; I10 Essential (primary) hypertension; F41.9 Anxiety disorder, unspecified; G43.909 Migraine, unspecified, not intractable, without status migrainosus; G62.9 Polyneuropathy, unspecified
CPT/HCPCS: 36415; 71045; 72148; 83605; 83735; 84100; 85025; 87040; 87077; 87086; 93005; A4663; G0378; J1885; J2405; J3370; J7030

== ENCOUNTER 2020-03-23 02:28 | Emergency (ER) | payer MEDICARE, MEDICAID ==
[~2020-03-23] VITALS: Ht 162.6 cm; Wt 124.7 kg
[~2020-03-23 02:28] MED LIST changes: -ACET325T53 PO; -ASCO500C18 PO; +ATOR10TA PO; -BETA15CR TP; +CELE200C PO; +ESTR50GE VG; +FLAX100031 PO; +GABA-532 PO; -GUAI237L83 PO; -IBUP-1955 PO; -LACT1CAP89 PO; -OCEAN EA NOSTRIL; +OMEG-153 PO; -ONDA4TAB5 PO
--- NOTE | 2020-03-23 02:35 | NUR ---
pt BIB [facility] unit 190 from [facility] for c/o pain in urination AA/Ox4. able to speak in complete sentences respirations even and unlabored. pt arrived on 5L via NC SpO2 100% No s/s of cardiovascular distress No s/s of distress pt arrived with F/C draining yellow urine, PICC single lumen on left upper arm Skin warm and dry to touch SR up for safety. Bed locked, lowest position. Instructed pt to call nurse for assistance monitored accordingly will continue to monitor
[2020-03-23 03:01] LABS: *BILIRUBIN,URIN NEGATIVE (NEGATIVE); *BLOOD, URINE 2+ (NEGATIVE); *CLARITY,URINE CLOUDY (CLEAR); *COLOR,URINE YELLOW (YELLOW); *KETONES,URINE NEGATIVE (NEGATIVE); *UROBILINOGEN,URINE 0.2 E.U./dl (NORMAL); LEUKOCYTE ESTERASE ,URINE 3+ (NEGATIVE); NITRITE, URINE POSITIVE (NEGATIVE); PH,URINE 5.5 (5.0-8.0); UGLUCOSE NEGATIVE (NEGATIVE)
--- NOTE | 2020-03-23 03:04 | NUR ---
Dr. Patino at bedside for MSE
[2020-03-23 03:09] LABS: BACTERIA,URINE MANY /HPF (NONE SEEN); WBC,URINE TNTC /HPF (0-3)
[2020-03-23 03:10] LABS: SQUAMOUS EPITHELIAL CELL,UR MODERATE /HPF (NONE SEEN)
[2020-03-23] MEDS ORDERED: PHENAZOPYRIDINE HCL 100 MG TABLET PO ONE (03:15)
[2020-03-23] MEDS ORDERED: HYDROCODONE/APAP 10-325 MG TABLET PO ONE (03:15)
[2020-03-23] MEDS ORDERED: PHENAZOPYRIDINE HCL 100 MG TABLET ONE (03:22)
[2020-03-23] MEDS ORDERED: HYDROCODONE/APAP 10-325 MG TABLET ONE (03:22)
[2020-03-23] MEDS ORDERED: SULFAMETH/TRIMETH 800/160 MG TABLET PO ONE (03:30)
[2020-03-23 03:32] LABS: BASOPHILS # (AUTO) 0.1 K/uL (0.0-8.0); BASOPHILS % (AUTO) 1.6 % (0.0-2.0); EOSINOPHILS # (AUTO) 0.2 K/uL (0.0-0.7); EOSINOPHILS % (AUTO) 2.8 % (0.0-7.0); HEMATOCRIT 38.1 % (31.2-41.9); HEMOGLOBIN 12.5 g/dL (10.9-14.3); LYMPHOCYTES # (AUTO) 2.8 K/uL (20.0-40.0); LYMPHOCYTES % (AUTO) 31.7 % (20.5-51.5); MEAN CORPUSCULAR HEMOGLOBIN 29.3 uug (24.7-32.8); MEAN CORPUSCULAR HGB CONC 33 g/dL (32.3-35.6); MEAN CORPUSCULAR VOLUME 89.1 fL (75.5-95.3); MONOCYTES # (AUTO) 0.5 K/uL (2.0-10.0); MONOCYTES % (AUTO) 5.8 % (0.0-11.0); NEUTROPHILS # (AUTO) 5.2 K/uL (1.8-8.9); NEUTROPHILS % (AUTO) 58.1 % (38.5-71.5); PLATELET COUNT (AUTO) 212 K/uL (179-408); RED BLOOD CELL COUNT(AUTO) 4.27 MIL/uL (3.63-4.92)
[2020-03-23] MEDS ORDERED: SULFAMETH/TRIMETH 800/160 MG TABLET ONE (03:35)
[2020-03-23 03:38] LABS: CREATININE 0.8 mg/dL (0.6-1.3); POTASSIUM 4.2 mmol/L (3.5-5.1)
[2020-03-23 03:44] LABS: BILIRUBIN,DIRECT 0.1 mg/dL (0.0-0.2); BILIRUBIN,TOTAL 0.1 mg/dL (0.2-1.0); TOTAL PROTEIN, SERUM 7.1 g/dL (6.4-8.2)
--- NOTE | 2020-03-23 05:31 | NUR ---
Called [facility] ambulance. spoke to Luly. ETA [id number]
--- NOTE | 2020-03-23 06:09 | NUR ---
GAVE SBAR REPORT TO [facility] NURSE FROM [facility].
--- NOTE | 2020-03-23 07:45 | NUR ---
Patient discharged to home in stable condition. Written and verbal after care instructions given. Patient verbalizes understanding of instructions. Stressed follow up or return to ER for worsening s/s. Patient picked up by [facility] unit 40 via [place]. all belongings with patient. NAD noted
[2020-03-23 08:16] VITALS: BP 135/74
== END 2020-03-23 07:45 ==
LOC: ER 02:31
DX: N39.0 Urinary tract infection, site not specified (principal); Z93.6 Other artificial openings of urinary tract status; E66.01 Morbid (severe) obesity due to excess calories; Z68.42 Body mass index [BMI] 45.0-49.9, adult; R60.0 Localized edema; Z74.01 Bed confinement status; Z86.19 Personal history of other infectious and parasitic diseases; R06.02 Shortness of breath; I10 Essential (primary) hypertension; K21.9 Gastro-esophageal reflux disease without esophagitis; G62.9 Polyneuropathy, unspecified; Z79.899 Other long term (current) drug therapy; R91.8 Other nonspecific abnormal finding of lung field
CPT/HCPCS: 36415; 70030-TC; 71045; 85025; 85730; 87077; 87086; 93005; A4663

== ENCOUNTER 2020-03-31 15:12 | Inpatient (IN) | payer MEDICARE, OTHER ==
[~2020-03-31] VITALS: Ht 162.6 cm; Wt 119.7 kg
--- NOTE | 2020-03-31 15:15 | NUR ---
Pt brought in by private ambulance from [facility] via [place]. Pt is on 5lpm o2 via nasal cannula, with midline(single lumen) on L upper arm, with indwelling liu catheter with urine 100ml. Pt is aox4, able to speak clear and complete sentences. 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 denies headache, nausea and emesis nor chest pain. not in acute distress, ERMD at bedside for hx and physical monitored accordingly
[2020-03-31] MEDS ORDERED: ASPIRIN 325 MG TABLET PO ONE (15:45)
[2020-03-31] MEDS ORDERED: CEFTRIAXONE 1 G in IV DEXTROSE 5% 50 ML IV ONE (15:45)
[2020-03-31] MEDS ORDERED: CEFTRIAXONE /D5W 50ML IVPB **ER PYXIS IV ONE (15:54)
[2020-03-31] MEDS ORDERED: ASPIRIN 325 MG TABLET ONE (15:54)
--- NOTE | 2020-03-31 16:30 | NUR ---
pt's midline has minimal to moderate resistance upon flushing with saline lock to test for patency. still intact but unable to infuse antibiotics as ordered through that site. Pt able to tolerate reinsertion of peripheral IV to R forearm.
[2020-03-31 16:47] LABS: BASOPHILS # (AUTO) 0.1 K/uL (0.0-8.0); BASOPHILS % (AUTO) 1.3 % (0.0-2.0); EOSINOPHILS # (AUTO) 0.3 K/uL (0.0-0.7); EOSINOPHILS % (AUTO) 3.4 % (0.0-7.0); HEMATOCRIT 37.4 % (31.2-41.9); HEMOGLOBIN 12.2 g/dL (10.9-14.3); LYMPHOCYTES # (AUTO) 2.7 K/uL (20.0-40.0); LYMPHOCYTES % (AUTO) 32.2 % (20.5-51.5); MEAN CORPUSCULAR HEMOGLOBIN 28.8 uug (24.7-32.8); MEAN CORPUSCULAR HGB CONC 33 g/dL (32.3-35.6); MEAN CORPUSCULAR VOLUME 88.2 fL (75.5-95.3); MONOCYTES # (AUTO) 0.6 K/uL (2.0-10.0); MONOCYTES % (AUTO) 7.5 % (0.0-11.0); NEUTROPHILS # (AUTO) 4.6 K/uL (1.8-8.9); NEUTROPHILS % (AUTO) 55.6 % (38.5-71.5); PLATELET COUNT (AUTO) 216 K/uL (179-408); RED BLOOD CELL COUNT(AUTO) 4.24 MIL/uL (3.63-4.92); WHITE BLOOD COUNT (AUTO) 8.3 K/uL (3.8-11.8)
[2020-03-31 16:56] LABS: *BILIRUBIN,URIN NEGATIVE (NEGATIVE); *BLOOD, URINE NEGATIVE (NEGATIVE); *CLARITY,URINE CLEAR (CLEAR); *COLOR,URINE YELLOW (YELLOW); *KETONES,URINE NEGATIVE (NEGATIVE); *UROBILINOGEN,URINE 0.2 E.U./dl (NORMAL); LEUKOCYTE ESTERASE ,URINE TRACE (NEGATIVE); NITRITE, URINE NEGATIVE (NEGATIVE); PH,URINE 5.5 (5.0-8.0); UGLUCOSE NEGATIVE (NEGATIVE)
--- NOTE | 2020-03-31 17:01 | NUR ---
Pt midline from L upper arm with mild resistance. Able to tolerate R forearm G22 insertion. labs sent,pending insurance availability for admission, Pt at 2lpm via nasal cannula, aox3, monitored accordingly
[2020-03-31 17:12] LABS: CREATININE 0.9 mg/dL (0.6-1.3); POTASSIUM 3.7 mmol/L (3.5-5.1)
[2020-03-31 17:22] LABS: BACTERIA,URINE FEW /HPF (NONE SEEN); CALCIUM OXALATE CRYSTALS,UR FEW /HPF (NONE SEEN); RBC,URINE 0-3 /HPF (0-3); SQUAMOUS EPITHELIAL CELL,UR FEW /HPF (NONE SEEN); WBC,URINE 0-3 /HPF (0-3)
[2020-03-31 17:24] LABS: BILIRUBIN,DIRECT 0.1 mg/dL (0.0-0.2); BILIRUBIN,TOTAL 0.1 mg/dL (0.2-1.0); TOTAL PROTEIN, SERUM 6.6 g/dL (6.4-8.2)
--- NOTE | 2020-03-31 17:37 | NUR ---
Hand off and SBAR given to Jes MONTEOR Pt ok to admit to M/S room [address] Troy Olguin Dx: UTI, generalized edema All belongings accounted for. Pt agrees with plan of care.
--- NOTE | 2020-03-31 18:30 | NUR ---
Pt is transported to floor, via gurney accompanied by ERRN, with o2 at 2 lpm via nasal cannula, intact indwelling liu, intact IV saline lock to R forearm g22 and midline(single lumen) to L upper arm. All belongings accounted for. NAD, VSS
[2020-03-31 19:07] VITALS: BP 122/67
[2020-03-31] MEDS ORDERED: FLEET ENEMA 133 ML BOTTLE RC PRN (19:15)
[2020-03-31] MEDS ORDERED: BISACODYL 10 MG SUPP.RECT RC PRN (19:15)
[2020-03-31] MEDS ORDERED: MAGNESIUM HYDROXIDE 30 ML LIQUID UDC PO PRN (19:15)
[2020-03-31 20:00] VITALS: BP 163/54
[2020-03-31] MEDS ORDERED: DIAZEPAM 5 MG PO SCH (21:00)
[2020-03-31] MEDS: SENNOSIDES 1 TABLET PO SCH (21:49)
[2020-03-31] MEDS: FUROSEMIDE 20 MG/2 ML VIAL IV SCH (21:49)
[2020-03-31] MEDS: GABAPENTIN 100 MG CAPSULE PO SCH (21:49)
[2020-03-31] MEDS: ATORVASTATIN 10 MG TABLET PO SCH (21:49)
[2020-03-31] MEDS: CARISOPRODOL 350 MG TABLET PO SCH (21:49)
[2020-03-31] MEDS: ENOXAPARIN SODIUM 40 MG/0.4 ML DISP.SYRIN SQ SCH (21:51)
[2020-03-31] MEDS: CELECOXIB 200 MG CAPSULE PO SCH (21:56)
[2020-03-31] MEDS: HYDROCODONE/APAP 5-325MG TABLET PO PRN (22:25)
[2020-04-01] MEDS: DIAZEPAM 5 MG TABLET PO SCH ×4 (00:09→17:15)
[2020-04-01] MEDS: OXYBUTYNIN CHLORIDE 5 MG TABLET PO SCH ×4 (00:09→17:15)
[2020-04-01 04:00] VITALS: BP 141/76
[2020-04-01] MEDS: HYDROMORPHONE 1 MG/1 ML DISP.SYRIN IV PRN ×3 (04:56→20:41)
[2020-04-01] MEDS: PANTOPRAZOLE SODIUM 40 MG TABLET.DR PO SCH (06:09)
[2020-04-01] MEDS: GABAPENTIN 100 MG CAPSULE PO SCH ×3 (06:09→21:01)
[2020-04-01 06:36] LABS: BASOPHILS # (AUTO) 0.1 K/uL (0.0-8.0); BASOPHILS % (AUTO) 1.2 % (0.0-2.0); EOSINOPHILS # (AUTO) 0.2 K/uL (0.0-0.7); EOSINOPHILS % (AUTO) 2.9 % (0.0-7.0); HEMATOCRIT 38.7 % (31.2-41.9); LYMPHOCYTES # (AUTO) 2.5 K/uL (20.0-40.0); LYMPHOCYTES % (AUTO) 30.7 % (20.5-51.5); MEAN CORPUSCULAR HEMOGLOBIN 29.4 uug (24.7-32.8); MEAN CORPUSCULAR HGB CONC 34 g/dL (32.3-35.6); MEAN CORPUSCULAR VOLUME 87.4 fL (75.5-95.3); MONOCYTES # (AUTO) 0.6 K/uL (2.0-10.0); MONOCYTES % (AUTO) 7.2 % (0.0-11.0); NEUTROPHILS # (AUTO) 4.7 K/uL (1.8-8.9); PLATELET COUNT (AUTO) 213 K/uL (179-408); RED BLOOD CELL COUNT(AUTO) 4.42 MIL/uL (3.63-4.92)
[2020-04-01 06:46] LABS: CREATININE 0.8 mg/dL (0.6-1.3); MAGNESIUM 1.8 mg/dL (1.8-2.4); PHOSPHOROUS 4.1 mg/dL (2.5-4.9)
[2020-04-01 07:07] LABS: THYROID STIMULATING HORMONE 1.709 mIU/mL (0.358-3.740)
--- NOTE | 2020-04-01 08:00 | NUR ---
Patient in bed, awake, and verbally responsive. On Oxygen at 2L via nasal canula, saturating 99%. No complain of Pain or discomfort. Poe catheter draining with clear yellow urine. kept clean and comfortable. Will continue to monitor.
[2020-04-01] MEDS: CELECOXIB 200 MG CAPSULE PO SCH ×2 (08:31→20:16)
[2020-04-01] MEDS: OMEGA-3 FATTY ACIDS/FISH OIL CAPSULE PO SCH (08:31)
[2020-04-01] MEDS: DOCUSATE SODIUM 100 MG CAPSULE PO SCH ×2 (08:31→16:35)
[2020-04-01] MEDS: SERTRALINE HCL 50 MG TABLET PO SCH (08:32)
[2020-04-01] MEDS: MULTIVIT, IRON, MIN NO. 8, FA TABLET PO SCH (08:32)
[2020-04-01] MEDS: CYCLOBENZAPRINE HCL 10 MG TABLET PO SCH ×2 (08:32→16:35)
[2020-04-01] MEDS: LIDOCAINE 5% PATCH TD SCH (08:32)
[2020-04-01] MEDS: FUROSEMIDE 20 MG/2 ML VIAL IV SCH ×2 (08:32→20:15)
[2020-04-01] MEDS: METOPROLOL SUCCINATE XL 50 MG TAB.SR.24H PO SCH (08:33)
[2020-04-01] MEDS: HYDROCODONE/APAP 5-325MG TABLET PO PRN ×2 (08:34→16:35)
[2020-04-01] MEDS ORDERED: Medication Not On Formulary EA (Multivitamins W-Minerals (Multivitamin With Minerals) 1 PO SCH (09:00)
[2020-04-01] MEDS ORDERED: Medication Not On Formulary EA (Sertraline Hcl (Zoloft) 25 MG) PO SCH (09:00)
[2020-04-01] MEDS ORDERED: Medication Not On Formulary EA (Salmon Oil/Omega-3 Fatty Acids (Fish Oil 500 Mg Softgel) PO SCH (09:00)
[2020-04-01] MEDS ORDERED: Medication Not On Formulary EA (Cyclobenzaprine Hcl 5 MG) PO SCH (09:00)
[2020-04-01 11:46] VITALS: BP 115/66
[2020-04-01 16:00] VITALS: BP 125/62
--- NOTE | 2020-04-01 18:30 | NUR ---
Patient in bed, awake, alert and verbally responsive. No signs of distress noted. On Oxygen at 2L via Nasal canula, saturating 99%. Pain medications given as ordered, [place] 5/325mg x2 and dilaudid 0.25mg IV given as ordered. All needs attended and met. kept clean and comfortable. Will endorsed to Oncoming Nurse.
--- NOTE | 2020-04-01 19:13 | NUR ---
Received patient calm and lying in bed. No signs or symptoms of acute distress, pain or SOB. Patient is verbally responsive AAOX4. Poe is draining. Lower extremities elevated. Safety precautions initiated and will continue to monitor.
[2020-04-01] MEDS: CARISOPRODOL 350 MG TABLET PO SCH (20:15)
[2020-04-01] MEDS: SENNOSIDES 1 TABLET PO SCH (20:15)
[2020-04-01] MEDS: ATORVASTATIN 10 MG TABLET PO SCH (20:15)
[2020-04-01] MEDS: ENOXAPARIN SODIUM 40 MG/0.4 ML DISP.SYRIN SQ SCH (20:21)
[2020-04-01 20:34] VITALS: BP 113/66
[2020-04-02] MEDS: OXYBUTYNIN CHLORIDE 5 MG TABLET PO SCH ×5 (00:18→23:00)
[2020-04-02] MEDS: DIAZEPAM 5 MG TABLET PO SCH ×5 (00:18→23:00)
[2020-04-02] MEDS: ACETAMINOPHEN 325 MG TABLET PO PRN (01:08)
[2020-04-02] MEDS: HYDROMORPHONE 1 MG/1 ML DISP.SYRIN IV PRN ×6 (02:09→22:07)
[2020-04-02] MEDS: GABAPENTIN 100 MG CAPSULE PO SCH ×3 (06:23→22:04)
[2020-04-02] MEDS: PANTOPRAZOLE SODIUM 40 MG TABLET.DR PO SCH (06:23)
--- NOTE | 2020-04-02 07:00 | NUR ---
Patient calm and lying in bed, awake, alert and oriented. No signs of acute distress. C/o pain at 0600 administered Dilaudid as ordered. No signs of SOB. Poe is draining. Left PICC intact and patent. Patients need attended and met. Safety measures endorsed to oncoming nurse.
[2020-04-02 07:01] VITALS: BP 112/64
--- NOTE | 2020-04-02 07:35 | NUR ---
Received patient in bed, alert awake and orientated. No signs of respiratory distress, patient is on 5L and saturating at 98%of oxygen via nasal cannula. IV is in left upper arm PICC line single lumen is patent. Patient reports generalized pain of 9/10, will administer pain medications as ordered. Checked Poe catheter which is patent. Safety measures implemented, bed in the lowest position and locked and call light and patient belonging are within reach. Will continue to observe and monitor.
[2020-04-02] MEDS: FUROSEMIDE 20 MG/2 ML VIAL IV SCH ×2 (09:22→22:04)
[2020-04-02] MEDS: CYCLOBENZAPRINE HCL 10 MG TABLET PO SCH ×2 (09:22→17:33)
[2020-04-02] MEDS: MULTIVIT, IRON, MIN NO. 8, FA TABLET PO SCH (09:23)
[2020-04-02] MEDS: SERTRALINE HCL 50 MG TABLET PO SCH (09:23)
[2020-04-02] MEDS: OMEGA-3 FATTY ACIDS/FISH OIL CAPSULE PO SCH (09:23)
[2020-04-02] MEDS: DOCUSATE SODIUM 100 MG CAPSULE PO SCH ×2 (09:23→17:34)
[2020-04-02] MEDS: METOPROLOL SUCCINATE XL 50 MG TAB.SR.24H PO SCH (09:24)
[2020-04-02] MEDS: LIDOCAINE 5% PATCH TD SCH (09:24)
[2020-04-02] MEDS: CELECOXIB 200 MG CAPSULE PO SCH ×2 (09:24→22:08)
[2020-04-02 12:00] VITALS: BP 141/74
[2020-04-02 16:37] VITALS: BP 133/84
[2020-04-02 18:41] LABS: *BILIRUBIN,URIN NEGATIVE (NEGATIVE); *BLOOD, URINE 1+ (NEGATIVE); *CLARITY,URINE CLEAR (CLEAR); *COLOR,URINE YELLOW (YELLOW); *KETONES,URINE NEGATIVE (NEGATIVE); *UROBILINOGEN,URINE 0.2 E.U./dl (NORMAL); LEUKOCYTE ESTERASE ,URINE 1+ (NEGATIVE); NITRITE, URINE NEGATIVE (NEGATIVE); UGLUCOSE NEGATIVE (NEGATIVE)
[2020-04-02 19:12] LABS: BACTERIA,URINE FEW /HPF (NONE SEEN); SQUAMOUS EPITHELIAL CELL,UR FEW /HPF (NONE SEEN)
[2020-04-02 20:00] VITALS: BP 137/64
[2020-04-02] MEDS ORDERED: IOHEXOL 300MG/ML 100 ML INFUS..BTL ONE (21:04)
[2020-04-02] MEDS ORDERED: IV NORMAL SALINE 250 ML IV ONE (21:04)
[2020-04-02] MEDS ORDERED: SWABABLE VALVE TRANSFER SET EA MC ONE (21:04)
[2020-04-02] MEDS: CARISOPRODOL 350 MG TABLET PO SCH (22:04)
[2020-04-02] MEDS: ATORVASTATIN 10 MG TABLET PO SCH (22:04)
[2020-04-02] MEDS: SENNOSIDES 1 TABLET PO SCH (22:05)
[2020-04-02] MEDS: ENOXAPARIN SODIUM 40 MG/0.4 ML DISP.SYRIN SQ SCH (22:06)
--- NOTE | 2020-04-03 03:24 | NUR ---
RECEIVED PATIENT IN BED, ALERT AND VERBALLY RESPONSIVE, CAN MAKE NEEDS KNOWN. REQUESTED FOR REFILL ON ICE PACKS. ATTENDED TO REQUEST. WILL CONTINUE TO OBSERVE FALL AND SAFETY PRECAUTIONS.
[2020-04-03 04:00] VITALS: BP 147/78
[2020-04-03] MEDS: GABAPENTIN 100 MG CAPSULE PO SCH ×3 (06:36→21:02)
[2020-04-03] MEDS: PANTOPRAZOLE SODIUM 40 MG TABLET.DR PO SCH (06:36)
[2020-04-03] MEDS: OXYBUTYNIN CHLORIDE 5 MG TABLET PO SCH ×3 (06:36→17:25)
[2020-04-03] MEDS: DIAZEPAM 5 MG TABLET PO SCH ×3 (06:36→17:24)
--- NOTE | 2020-04-03 08:45 | NUR ---
RECEIVED PATIENT IN BED, ALERT AND VERBALLY RESPONSIVE, CAN MAKE NEEDS KNOWN. NO SIGNS OF RESPIRATORY DISTRESS NOTED AT THIS TIME, PATIENT IS SATURATING WELL ON 3L OF OXYGEN VIA A NASAL CANNULA. PATIENT REPORTED PAIN LEVEL OF 10/10 AND WILL ADMINISTER PAIN MEDICATION ORDERED AND REASSESS. SAFETY PRECAUTION IMPLEMENTED BED IN LOWEST POSITION AND LOCKED, CALL LIGHTS AND BELONGINGS IN REACH. WILL CONTINUE TO OBSERVE FALL AND SAFETY PRECAUTIONS.
[2020-04-03] MEDS: CELECOXIB 200 MG CAPSULE PO SCH ×2 (09:00→21:02)
[2020-04-03] MEDS: FUROSEMIDE 20 MG/2 ML VIAL IV SCH ×2 (09:00→21:02)
[2020-04-03] MEDS: LIDOCAINE 5% PATCH TD SCH (09:00)
[2020-04-03] MEDS: SERTRALINE HCL 50 MG TABLET PO SCH (09:01)
[2020-04-03] MEDS: OMEGA-3 FATTY ACIDS/FISH OIL CAPSULE PO SCH (09:01)
[2020-04-03] MEDS: DOCUSATE SODIUM 100 MG CAPSULE PO SCH ×2 (09:01→17:24)
[2020-04-03] MEDS: MULTIVIT, IRON, MIN NO. 8, FA TABLET PO SCH (09:01)
[2020-04-03] MEDS: CYCLOBENZAPRINE HCL 10 MG TABLET PO SCH ×2 (09:01→17:25)
[2020-04-03] MEDS: METOPROLOL SUCCINATE XL 50 MG TAB.SR.24H PO SCH (09:11)
[2020-04-03] MEDS: HYDROMORPHONE 1 MG/1 ML DISP.SYRIN IV PRN ×3 (09:38→22:18)
[2020-04-03] MEDS: HYDROCODONE/APAP 5-325MG TABLET PO PRN ×2 (11:40→21:03)
[2020-04-03 12:00] VITALS: BP 141/84
[2020-04-03] MEDS: CEFTRIAXONE 1 G in IV DEXTROSE 5% 50 ML IV SCH (14:05)
[2020-04-03 16:00] VITALS: BP 146/81
--- NOTE | 2020-04-03 19:20 | NUR ---
Received patient lying in bed. AAOx4. In no acute distress. Denies any SOB. On O2 AT 3lpm via NC in place. O2 sat at 97%. VS WNL. Left upper arm PICC line intact and patent. Poe catheter intact and draining via gravity. Safety measure initiated and call graff within reached.
[2020-04-03 20:40] VITALS: BP 134/68
[2020-04-03] MEDS: CARISOPRODOL 350 MG TABLET PO SCH (21:02)
[2020-04-03] MEDS: SENNOSIDES 1 TABLET PO SCH (21:02)
[2020-04-03] MEDS: ATORVASTATIN 10 MG TABLET PO SCH (21:02)
[2020-04-03] MEDS: ENOXAPARIN SODIUM 40 MG/0.4 ML DISP.SYRIN SQ SCH (21:04)
[2020-04-04] MEDS: OXYBUTYNIN CHLORIDE 5 MG TABLET PO SCH ×5 (01:11→23:18)
[2020-04-04] MEDS: DIAZEPAM 5 MG TABLET PO SCH ×5 (01:11→23:18)
[2020-04-04] MEDS: GABAPENTIN 100 MG CAPSULE PO SCH ×2 (05:32→13:10)
[2020-04-04 06:00] VITALS: BP 133/74
[2020-04-04] MEDS: PANTOPRAZOLE SODIUM 40 MG TABLET.DR PO SCH (06:10)
[2020-04-04] MEDS: HYDROMORPHONE 1 MG/1 ML DISP.SYRIN IV PRN ×4 (06:16→20:22)
--- NOTE | 2020-04-04 06:32 | NUR ---
AAOx4. In no acute distress. Denies any SOB. Dilaudid PRN and [place] PRN provided for complain of pain and effective. O2 at 3lpm via NC in place. Left upper arm PICC line intact and patent. Poe catheter intact and draining via gravity. Safety measure maintained and call graff within reached.
[2020-04-04 06:34] LABS: BASOPHILS # (AUTO) 0.1 K/uL (0.0-8.0); BASOPHILS % (AUTO) 1.4 % (0.0-2.0); EOSINOPHILS # (AUTO) 0.5 K/uL (0.0-0.7); EOSINOPHILS % (AUTO) 5.2 % (0.0-7.0); HEMATOCRIT 38.5 % (31.2-41.9); HEMOGLOBIN 12.6 g/dL (10.9-14.3); LYMPHOCYTES # (AUTO) 2.9 K/uL (20.0-40.0); LYMPHOCYTES % (AUTO) 32.2 % (20.5-51.5); MEAN CORPUSCULAR HEMOGLOBIN 28.7 uug (24.7-32.8); MEAN CORPUSCULAR HGB CONC 33 g/dL (32.3-35.6); MEAN CORPUSCULAR VOLUME 87.7 fL (75.5-95.3); MONOCYTES # (AUTO) 0.7 K/uL (2.0-10.0); MONOCYTES % (AUTO) 7.5 % (0.0-11.0); NEUTROPHILS # (AUTO) 4.9 K/uL (1.8-8.9); NEUTROPHILS % (AUTO) 53.7 % (38.5-71.5); PLATELET COUNT (AUTO) 212 K/uL (179-408); RED BLOOD CELL COUNT(AUTO) 4.39 MIL/uL (3.63-4.92); WHITE BLOOD COUNT (AUTO) 9.2 K/uL (3.8-11.8)
[2020-04-04 06:48] LABS: CREATININE 0.8 mg/dL (0.6-1.3); MAGNESIUM 1.8 mg/dL (1.8-2.4); PHOSPHOROUS 4.4 mg/dL (2.5-4.9); POTASSIUM 3.7 mmol/L (3.5-5.1)
[2020-04-04] MEDS: DOCUSATE SODIUM 100 MG CAPSULE PO SCH ×2 (08:19→16:46)
[2020-04-04] MEDS: OMEGA-3 FATTY ACIDS/FISH OIL CAPSULE PO SCH (08:19)
[2020-04-04] MEDS: LIDOCAINE 5% PATCH TD SCH (08:19)
[2020-04-04] MEDS: FUROSEMIDE 20 MG/2 ML VIAL IV SCH ×2 (08:19→20:23)
[2020-04-04] MEDS: CYCLOBENZAPRINE HCL 10 MG TABLET PO SCH ×2 (08:20→16:45)
[2020-04-04] MEDS: SERTRALINE HCL 50 MG TABLET PO SCH (08:20)
[2020-04-04] MEDS: MULTIVIT, IRON, MIN NO. 8, FA TABLET PO SCH (08:20)
[2020-04-04] MEDS: METOPROLOL SUCCINATE XL 50 MG TAB.SR.24H PO SCH (08:20)
[2020-04-04] MEDS: CEFTRIAXONE 1 G in IV DEXTROSE 5% 50 ML IV SCH (08:26)
[2020-04-04] MEDS: CELECOXIB 200 MG CAPSULE PO SCH ×2 (09:02→20:20)
--- NOTE | 2020-04-04 09:30 | NUR ---
PATIENT IS COMPLAINING OF PAIN AND THE ONLY PAIN MEDICATIONS THAT I COULD GIVE HER IS NORCO BUT SHE IS COMPLAINING OF NAUSEA AND UNABLE TO TAKE THE NORCO SHE HAS NO ORDER FOR RAIMUNDO CALLED DR SALCEDO FOR AN ANTIEMETIC AND NORCO RETURNED AND WITHNESSED
--- NOTE | 2020-04-04 10:00 | NUR ---
PATIENT MEDICATED WITH DILAUDID AND ZOFRAN ORDERED MADE COMFORTABLE AND WILL CONTINUE TO OBSERVE.
[2020-04-04] MEDS: ONDANSETRON 4 MG/2 ML VIAL IV PRN ×2 (10:06→14:33)
[2020-04-04 12:00] VITALS: BP 131/89
--- NOTE | 2020-04-04 14:33 | NUR ---
PATIENT MEDICATED AGAIN FOR PAIN AND NAUSEA STATED UNABLE TO EAT DUE TO NAUSEA DR SALCEDO NOTIFIED.
[2020-04-04 16:00] VITALS: BP 140/75
--- NOTE | 2020-04-04 16:21 | NUR ---
PATIENT IS TOO SLEEPY EVEN THOUGH SHE IS COMPLAINING OF GENERALISED PAIN DR SALCEDO AWARE AND AFTER HE REVIEWED HER MEDICATIONS DECIDED TO STOP HER NEURONTIN AND NOTED.
--- NOTE | 2020-04-04 17:55 | NUR ---
ASSIGNED SUPPLY TECHNICIAN MADE MORE THAN 5 ATTEMPTS TO BATHE PATIENT BUT SHE PERSISTENTLY REFUSED AND DECLINED STATED LATER AND AT TIMES STATED DOES NOT FEEL GOOD TODAY WILL ENDORSE TO THE ONCOMING NURSE TO CONTINUE TO ATTEMPT PATIENTS RIGHTS TO REFUSE RESPECTED MADE COMFORTABLE.
--- NOTE | 2020-04-04 18:00 | NUR ---
PATIENT HAS REFUSED ALL HER MEALS TODAY STATED NOT HUNGRY DID HAVE EPISODES OF FEELING NAUSEA MEDICATED ORDERED AND STATED THAT IT HELPED HER.SHE IS DRINKING WELL INCLUDING WATER JUICES AND 2 CANS OF PARUL JEWELS.DR SALCEDO AWARE THAT PATIENT IS REFUSING TO EAT.
--- NOTE | 2020-04-04 19:20 | NUR ---
Received patient lying in bed. AAOx4. In no acute distress. Denies any SOB. On O2 at 3lpm via NC in place. Patient c/o pain. Will administer pain medication as ordered. Left upper arm PICC line intact and patent. Poe catheter intact and draining via gravity. Safety measure initiated and call graff within reached.
[2020-04-04] MEDS: CARISOPRODOL 350 MG TABLET PO SCH (20:20)
[2020-04-04] MEDS: SENNOSIDES 1 TABLET PO SCH (20:21)
[2020-04-04] MEDS: ATORVASTATIN 10 MG TABLET PO SCH (20:23)
[2020-04-04] MEDS: ENOXAPARIN SODIUM 40 MG/0.4 ML DISP.SYRIN SQ SCH (20:24)
[2020-04-04 20:40] VITALS: BP 134/85
[2020-04-05] MEDS: HYDROMORPHONE 1 MG/1 ML DISP.SYRIN IV PRN ×5 (00:31→20:48)
[2020-04-05] MEDS: DIAZEPAM 5 MG TABLET PO SCH ×4 (05:45→23:15)
[2020-04-05] MEDS: OXYBUTYNIN CHLORIDE 5 MG TABLET PO SCH ×4 (05:45→23:14)
[2020-04-05] MEDS: PANTOPRAZOLE SODIUM 40 MG TABLET.DR PO SCH (06:10)
--- NOTE | 2020-04-05 06:45 | NUR ---
Patient is AAOX4. No signs of acute distress. Patient c/o pain. PRN Dilaudid administered per order. Left PICC patent and intact. Poe patent and draining by gravity. Patient received a full bed bath last night. Needs attended to and met. Safety measures maintained and endorsed to oncoming nurse.
[2020-04-05 06:50] VITALS: BP 140/64
--- NOTE | 2020-04-05 07:40 | NUR ---
PATIENT RECEIVED IN BED DOZING OFF ON O2 AT 3L/M BY NASAL CANULA WITH NO S/S OF SHORTNESS OF BREATH AT THIS TIME RAMESH DRAINING YELLOW URINE WITH NO HEMATURIA AT THIS TIME CALL LIGHTS AND PERSONAL BELONGINGS ARE WITHIN EASY REACH MADE COMFORTABLE WILL CONTINUE TO OBSERVE AND PROVIDE COMFORT.
[2020-04-05] MEDS: CEFTRIAXONE 1 G in IV DEXTROSE 5% 50 ML IV SCH (08:57)
[2020-04-05] MEDS: SERTRALINE HCL 50 MG TABLET PO SCH (08:58)
[2020-04-05] MEDS: FUROSEMIDE 20 MG/2 ML VIAL IV SCH ×2 (08:58→20:48)
[2020-04-05] MEDS: CYCLOBENZAPRINE HCL 10 MG TABLET PO SCH ×2 (08:58→17:06)
[2020-04-05] MEDS: MULTIVIT, IRON, MIN NO. 8, FA TABLET PO SCH (08:58)
[2020-04-05] MEDS: OMEGA-3 FATTY ACIDS/FISH OIL CAPSULE PO SCH (08:59)
[2020-04-05] MEDS: CELECOXIB 200 MG CAPSULE PO SCH ×2 (08:59→20:48)
[2020-04-05] MEDS: DOCUSATE SODIUM 100 MG CAPSULE PO SCH ×2 (08:59→17:06)
[2020-04-05] MEDS: METOPROLOL SUCCINATE XL 50 MG TAB.SR.24H PO SCH (09:01)
[2020-04-05] MEDS: LIDOCAINE 5% PATCH TD SCH (09:13)
--- NOTE | 2020-04-05 11:00 | NUR ---
PATIENT CONTINUES TO REQUEST FOR DILAUDID FOR PAIN GIVEN ORDERED MADE COMFORTABLE WILL CONTINUE TO OBSERVE.
[2020-04-05 11:47] VITALS: BP 137/81
[2020-04-05] MEDS: HYDROCODONE/APAP 5-325MG TABLET PO PRN ×2 (12:24→23:30)
--- NOTE | 2020-04-05 14:00 | NUR ---
PATIENT SEEN AND EXAMINED BY JAI EMERGENCY DISPATCH OPERATOR WITH NEW ORDERS AND NOTED.
[2020-04-05 16:00] VITALS: BP 130/78
--- NOTE | 2020-04-05 18:00 | NUR ---
RESTING WITH PAIN MEDICATIONS ORDERED MAX ASSIST FOR ALL ADL BUT ABLE TO MAKE NEEDS KNOWN NO DISTRESS AT THIS TIME.
--- NOTE | 2020-04-05 20:00 | NUR ---
received patient awake and alert in bed, no signs of acute distress noted. A/Ox4. Complaining of generalized pain, no SOB. Vitals WNL. Left upper arm PICC is intact and patent. Poe catheter is intact and draining well. Generalized edema noted. Safety measures initiated. Bed is low and locked, call light within reach. Will continue to monitor.
[2020-04-05 20:40] VITALS: BP 120/84
[2020-04-05] MEDS: SENNOSIDES 1 TABLET PO SCH (20:47)
[2020-04-05] MEDS: ATORVASTATIN 10 MG TABLET PO SCH (20:48)
[2020-04-05] MEDS: CARISOPRODOL 350 MG TABLET PO SCH (20:48)
[2020-04-05] MEDS: ENOXAPARIN SODIUM 40 MG/0.4 ML DISP.SYRIN SQ SCH (20:49)
[2020-04-06] MEDS ORDERED: Z GUARD REMEDY PASTE 57 GM TUBE TOP PRN (01:15)
[2020-04-06 04:40] VITALS: BP 143/88
[2020-04-06] MEDS: OXYBUTYNIN CHLORIDE 5 MG TABLET PO SCH ×3 (06:11→17:59)
[2020-04-06] MEDS: PANTOPRAZOLE SODIUM 40 MG TABLET.DR PO SCH (06:11)
[2020-04-06] MEDS: DIAZEPAM 5 MG TABLET PO SCH ×3 (06:12→17:59)
[2020-04-06] MEDS: HYDROMORPHONE 1 MG/1 ML DISP.SYRIN IV PRN ×3 (06:39→20:53)
[2020-04-06 07:01] LABS: BASOPHILS # (AUTO) 0.1 K/uL (0.0-8.0); BASOPHILS % (AUTO) 0.8 % (0.0-2.0); EOSINOPHILS # (AUTO) 0.3 K/uL (0.0-0.7); EOSINOPHILS % (AUTO) 3.8 % (0.0-7.0); HEMATOCRIT 37.9 % (31.2-41.9); HEMOGLOBIN 12.5 g/dL (10.9-14.3); LYMPHOCYTES # (AUTO) 2.5 K/uL (20.0-40.0); LYMPHOCYTES % (AUTO) 35.3 % (20.5-51.5); MEAN CORPUSCULAR HEMOGLOBIN 28.9 uug (24.7-32.8); MEAN CORPUSCULAR HGB CONC 33 g/dL (32.3-35.6); MEAN CORPUSCULAR VOLUME 87.2 fL (75.5-95.3); MONOCYTES # (AUTO) 0.6 K/uL (2.0-10.0); MONOCYTES % (AUTO) 8.4 % (0.0-11.0); NEUTROPHILS # (AUTO) 3.6 K/uL (1.8-8.9); NEUTROPHILS % (AUTO) 51.7 % (38.5-71.5); PLATELET COUNT (AUTO) 215 K/uL (179-408); RED BLOOD CELL COUNT(AUTO) 4.34 MIL/uL (3.63-4.92)
[2020-04-06 07:08] LABS: CREATININE 0.9 mg/dL (0.6-1.3); POTASSIUM 3.7 mmol/L (3.5-5.1)
--- NOTE | 2020-04-06 08:10 | NUR ---
Pt is in her bed, awake, calm. O2 canula is in place, liu catheter is intact and draining. Generalized mild edema is noted. Some redness on coccyx area noted, Z guard applied, and mepilexed applied for comfort. Pt is A/O x 4.
[2020-04-06] MEDS: OMEGA-3 FATTY ACIDS/FISH OIL CAPSULE PO SCH (09:14)
[2020-04-06] MEDS: CELECOXIB 200 MG CAPSULE PO SCH ×2 (09:15→20:38)
[2020-04-06] MEDS: MULTIVIT, IRON, MIN NO. 8, FA TABLET PO SCH (09:15)
[2020-04-06] MEDS: CYCLOBENZAPRINE HCL 10 MG TABLET PO SCH ×2 (09:15→17:59)
[2020-04-06] MEDS: DOCUSATE SODIUM 100 MG CAPSULE PO SCH ×2 (09:15→17:59)
[2020-04-06] MEDS: FUROSEMIDE 20 MG/2 ML VIAL IV SCH ×2 (09:15→20:38)
[2020-04-06] MEDS: METOPROLOL SUCCINATE XL 50 MG TAB.SR.24H PO SCH (09:26)
[2020-04-06] MEDS: LIDOCAINE 5% PATCH TD SCH (09:37)
[2020-04-06] MEDS: LINEZOLID 600 MG TABLET PO SCH ×2 (10:48→20:39)
[2020-04-06] MEDS ORDERED: FUROSEMIDE 20 MG/2 ML VIAL IV ONE (11:45)
[2020-04-06 12:02] VITALS: BP 158/95
[2020-04-06] MEDS: ONDANSETRON 4 MG/2 ML VIAL IV PRN (15:02)
[2020-04-06] MEDS: ACETAMINOPHEN 325 MG TABLET PO PRN (15:27)
[2020-04-06 16:31] VITALS: BP 102/64
--- NOTE | 2020-04-06 19:30 | NUR ---
RECEIVED PT IN NO ACUTE DISTRESS.RAMESH CATHETER INTACT AND DRAINING WELL. IV INTACT .GENERALIZED EDEMA NOTED. SAFETY AND COMFORT PROVIDED. WILL CONTINUE TO MONITOR.
[2020-04-06] MEDS: SENNOSIDES 1 TABLET PO SCH (20:38)
[2020-04-06] MEDS: ATORVASTATIN 10 MG TABLET PO SCH (20:38)
[2020-04-06] MEDS: ENOXAPARIN SODIUM 40 MG/0.4 ML DISP.SYRIN SQ SCH (20:40)
[2020-04-06 21:00] VITALS: BP 137/78
[2020-04-07] MEDS: DIAZEPAM 5 MG TABLET PO SCH ×5 (00:54→23:28)
[2020-04-07] MEDS: OXYBUTYNIN CHLORIDE 5 MG TABLET PO SCH ×5 (00:55→23:28)
[2020-04-07] MEDS: HYDROMORPHONE 1 MG/1 ML DISP.SYRIN IV PRN ×5 (02:41→20:35)
[2020-04-07 04:00] VITALS: BP 131/85
[2020-04-07] MEDS: PANTOPRAZOLE SODIUM 40 MG TABLET.DR PO SCH (06:02)
--- NOTE | 2020-04-07 06:18 | NUR ---
PT IN NO ACUTE RESPIRATORY DISTRESS. IV INTACT. RAMESH INTACT AND DRAINING WELL.PRESCRIBED MEDICATION GIVEN AND PT TOLERATED IT WELL. DILAUDID GIVEN AT 2053H and 14555c FOR 8/10 PAIN FOR GENERALIZED PAIN. PT TOLERATED IT WELL. SAFETY AND COMFORT PROVIDED. ALL NEEDS ARE MET. WILL ENDORSE TO INCOMING NURSE FOR CONTINUITY OF CARE.
[2020-04-07 06:47] LABS: BASOPHILS # (AUTO) 0.1 K/uL (0.0-8.0); BASOPHILS % (AUTO) 0.8 % (0.0-2.0); EOSINOPHILS # (AUTO) 0.3 K/uL (0.0-0.7); HEMATOCRIT 38.5 % (31.2-41.9); HEMOGLOBIN 12.7 g/dL (10.9-14.3); LYMPHOCYTES # (AUTO) 2.3 K/uL (20.0-40.0); MEAN CORPUSCULAR HEMOGLOBIN 28.9 uug (24.7-32.8); MEAN CORPUSCULAR HGB CONC 33 g/dL (32.3-35.6); MEAN CORPUSCULAR VOLUME 87.6 fL (75.5-95.3); MONOCYTES # (AUTO) 0.5 K/uL (2.0-10.0); MONOCYTES % (AUTO) 7.4 % (0.0-11.0); NEUTROPHILS # (AUTO) 3.3 K/uL (1.8-8.9); NEUTROPHILS % (AUTO) 51.8 % (38.5-71.5); PLATELET COUNT (AUTO) 213 K/uL (179-408); RED BLOOD CELL COUNT(AUTO) 4.39 MIL/uL (3.63-4.92); WHITE BLOOD COUNT (AUTO) 6.4 K/uL (3.8-11.8)
[2020-04-07 07:04] LABS: CREATININE 0.8 mg/dL (0.6-1.3); POTASSIUM 3.3 mmol/L (3.5-5.1)
--- NOTE | 2020-04-07 07:04 | NUR ---
Dilaudid given to the pt as per pt request. Pt pain level is 8/10 for generalized pain. Pt tolerated it well. Will continue to monitor.
[2020-04-07 07:30] VITALS: BP 130/80
--- NOTE | 2020-04-07 08:00 | NUR ---
received pt. resting in bed alert oriented x4. pt. has L UA PICC Line single lumen intact patent saline lock. pt. denies SOB/ difficulty breathing. Pt. is on 5L Nasal canula will try to wean pt. down. Pt. has liu catheter in place for urinary retention draining well. pt. states she has generalized pain. pain med given recently will assess pain and give PRN pain med when available. safety measures in place. call light within reach. will continue to monitor pt.
[2020-04-07] MEDS: OMEGA-3 FATTY ACIDS/FISH OIL CAPSULE PO SCH (08:11)
[2020-04-07] MEDS: CYCLOBENZAPRINE HCL 10 MG TABLET PO SCH ×2 (08:11→17:27)
[2020-04-07] MEDS: DOCUSATE SODIUM 100 MG CAPSULE PO SCH ×2 (08:12→17:26)
[2020-04-07] MEDS: MULTIVIT, IRON, MIN NO. 8, FA TABLET PO SCH (08:12)
[2020-04-07] MEDS: FUROSEMIDE 20 MG/2 ML VIAL IV SCH ×2 (08:13→20:36)
[2020-04-07] MEDS: METOPROLOL SUCCINATE XL 50 MG TAB.SR.24H PO SCH (08:13)
[2020-04-07] MEDS: CELECOXIB 200 MG CAPSULE PO SCH ×2 (08:14→20:37)
[2020-04-07] MEDS: LINEZOLID 600 MG TABLET PO SCH ×2 (08:14→20:37)
[2020-04-07] MEDS: LIDOCAINE 5% PATCH TD SCH (08:14)
[2020-04-07] MEDS ORDERED: POTASSIUM CHLORIDE 20 MEQ TAB.PRT.SR PO ONE (08:45)
[2020-04-07 16:30] VITALS: BP 146/79
--- NOTE | 2020-04-07 20:00 | NUR ---
Patient received into care resting in bed, talking on telephone, and watching television. Patient is alert/oriented x4 and has no complaints of pain or discomfort at this time. LAUREN PICC line with single lumen is patent, intact, and flushing well. All safety and fall precaution measures are in place. Call light and personal items are within reach. Will continue to monitor and assess.
[2020-04-07] MEDS: ENOXAPARIN SODIUM 40 MG/0.4 ML DISP.SYRIN SQ SCH (20:32)
[2020-04-07] MEDS: ATORVASTATIN 10 MG TABLET PO SCH (20:36)
[2020-04-07] MEDS: SENNOSIDES 1 TABLET PO SCH (20:37)
[2020-04-07 21:25] VITALS: BP 126/78
[2020-04-08] MEDS: HYDROMORPHONE 1 MG/1 ML DISP.SYRIN IV PRN ×4 (01:05→19:47)
--- NOTE | 2020-04-08 05:00 | NUR ---
Patient slept intermittently throughout night with complaints of pain/discomfort addressed with prescribed analgesics, with no adverse side effects verbalized by patient or noted/observed by this nurse. All prescribed medications provided as ordered and tolerated well, with no adverse side effects verbalized by patient or noted/observed by this nurse. All safety and fall precautions remain in place. All personal items and call light remain within reach.
[2020-04-08 05:17] VITALS: BP 123/60
[2020-04-08 06:26] LABS: BASOPHILS # (AUTO) 0.1 K/uL (0.0-8.0); BASOPHILS % (AUTO) 1.3 % (0.0-2.0); EOSINOPHILS # (AUTO) 0.5 K/uL (0.0-0.7); EOSINOPHILS % (AUTO) 6.5 % (0.0-7.0); HEMATOCRIT 39.1 % (31.2-41.9); HEMOGLOBIN 12.9 g/dL (10.9-14.3); LYMPHOCYTES # (AUTO) 2.6 K/uL (20.0-40.0); LYMPHOCYTES % (AUTO) 36.8 % (20.5-51.5); MEAN CORPUSCULAR HEMOGLOBIN 28.8 uug (24.7-32.8); MEAN CORPUSCULAR HGB CONC 33 g/dL (32.3-35.6); MEAN CORPUSCULAR VOLUME 87.2 fL (75.5-95.3); MONOCYTES # (AUTO) 0.5 K/uL (2.0-10.0); MONOCYTES % (AUTO) 7.9 % (0.0-11.0); NEUTROPHILS # (AUTO) 3.3 K/uL (1.8-8.9); NEUTROPHILS % (AUTO) 47.5 % (38.5-71.5); PLATELET COUNT (AUTO) 222 K/uL (179-408); RED BLOOD CELL COUNT(AUTO) 4.49 MIL/uL (3.63-4.92); WHITE BLOOD COUNT (AUTO) 6.9 K/uL (3.8-11.8)
[2020-04-08] MEDS: PANTOPRAZOLE SODIUM 40 MG TABLET.DR PO SCH (06:34)
[2020-04-08] MEDS: OXYBUTYNIN CHLORIDE 5 MG TABLET PO SCH ×4 (06:34→23:47)
[2020-04-08] MEDS: DIAZEPAM 5 MG TABLET PO SCH ×4 (06:34→23:47)
[2020-04-08 06:40] LABS: CREATININE 0.9 mg/dL (0.6-1.3); POTASSIUM 3.8 mmol/L (3.5-5.1)
[2020-04-08] MEDS: MULTIVIT, IRON, MIN NO. 8, FA TABLET PO SCH (08:14)
[2020-04-08] MEDS: OMEGA-3 FATTY ACIDS/FISH OIL CAPSULE PO SCH (08:14)
[2020-04-08] MEDS: LIDOCAINE 5% PATCH TD SCH (08:14)
[2020-04-08] MEDS: DOCUSATE SODIUM 100 MG CAPSULE PO SCH ×2 (08:14→16:50)
[2020-04-08] MEDS: CYCLOBENZAPRINE HCL 10 MG TABLET PO SCH ×2 (08:14→16:49)
[2020-04-08] MEDS: METOPROLOL SUCCINATE XL 50 MG TAB.SR.24H PO SCH (08:15)
[2020-04-08] MEDS: CELECOXIB 200 MG CAPSULE PO SCH ×2 (08:15→20:52)
[2020-04-08] MEDS: LINEZOLID 600 MG TABLET PO SCH ×2 (08:15→20:52)
[2020-04-08] MEDS: FUROSEMIDE 20 MG/2 ML VIAL IV SCH ×2 (08:24→20:53)
[2020-04-08 08:48] VITALS: BP 137/83
[2020-04-08] MEDS ORDERED: LINE600T12 PO (10:45)
[2020-04-08] MEDS ORDERED: HYDR2TAB4 PO (10:45)
[2020-04-08] MEDS ORDERED: Oxybutynin Chloride PO (10:45)
[2020-04-08 15:35] VITALS: BP 120/82
--- NOTE | 2020-04-08 20:00 | NUR ---
Patient received into care awake and talking on phone. Patient is alert/oriented x3 and complaining of pain of 10/10, which was addressed by this nurse with prescribed IV analgesics, which patient tolerated well with no adverse side effects verbalized by pt or noted/observed by this nurse. All safety, fall, and allergy precautions are in place. Call light and personal items are within reach at all times. Will continue to monitor and assess.
[2020-04-08] MEDS: ATORVASTATIN 10 MG TABLET PO SCH (20:52)
[2020-04-08] MEDS: SENNOSIDES 1 TABLET PO SCH (20:52)
[2020-04-08 21:02] VITALS: BP 129/94
--- NOTE | 2020-04-08 23:43 | NUR ---
Received report from KYLAH [place]. Patient in bed, sleeping easy to arouse. Patient has no sign of acute distress or pain. Patient is on 2L NC and saturating WNL. Poe is patent and intact, draining yellow urine. Safety measures in place. Bed low and locked in positino. Will continue with the plan of care.
[2020-04-09] MEDS: HYDROMORPHONE 1 MG/1 ML DISP.SYRIN IV PRN ×5 (01:36→20:38)
[2020-04-09 06:12] VITALS: BP 143/66
[2020-04-09] MEDS: PANTOPRAZOLE SODIUM 40 MG TABLET.DR PO SCH (06:24)
[2020-04-09] MEDS: OXYBUTYNIN CHLORIDE 5 MG TABLET PO SCH ×4 (06:24→23:11)
[2020-04-09] MEDS: DIAZEPAM 5 MG TABLET PO SCH ×4 (06:25→23:11)
--- NOTE | 2020-04-09 06:57 | NUR ---
Patient slept through the night. Patient is awake and denies any acute distress or pain at this time. LAUREN PICC with single lumen is intact, patent and no sign of infection noted. Vitals stable. Poe is intact and draining yellow urine. Prescribed medications given, patient tolerated. Pain managed effectively. Comfort care and needs attended. Fall precaution maintained. Safety measures in place. Bed low and locked in position. Call light and personal belongings within reach. Will endorse to the oncoming nurse accordingly.
--- NOTE | 2020-04-09 07:40 | NUR ---
RECEIVED PATIENT IN BED, ASLEEP, EASY TO WAKE UP, AOX4. DENIES SOB OR CHEST PAIN. NO SIGNS OF DISTRESS AT THIS TIME. PAIN MANAGEMENT HAS BEEN ADDRESSED AND WILL MEDICATE ORDERED BY MD. ALL NEEDS MET AT THIS TIME. SAFETY AND FALL PREVENTION IN PLACE. BED LOW AND LOCKED. CALL LIGHT IN REACH. WILL CONTINUE TO MONITOR.
[2020-04-09] MEDS: FUROSEMIDE 20 MG/2 ML VIAL IV SCH ×2 (10:02→20:42)
[2020-04-09] MEDS: LINEZOLID 600 MG TABLET PO SCH ×2 (10:03→20:42)
[2020-04-09] MEDS: OMEGA-3 FATTY ACIDS/FISH OIL CAPSULE PO SCH (10:03)
[2020-04-09] MEDS: MULTIVIT, IRON, MIN NO. 8, FA TABLET PO SCH (10:03)
[2020-04-09] MEDS: CELECOXIB 200 MG CAPSULE PO SCH ×2 (10:05→20:42)
[2020-04-09] MEDS: DOCUSATE SODIUM 100 MG CAPSULE PO SCH ×2 (10:05→17:25)
[2020-04-09] MEDS: CYCLOBENZAPRINE HCL 10 MG TABLET PO SCH ×2 (10:05→17:25)
[2020-04-09] MEDS: LIDOCAINE 5% PATCH TD SCH (10:06)
[2020-04-09] MEDS: METOPROLOL SUCCINATE XL 50 MG TAB.SR.24H PO SCH (10:06)
[2020-04-09 12:33] VITALS: BP 138/73
[2020-04-09 16:24] VITALS: BP 130/69
--- NOTE | 2020-04-09 19:43 | NUR ---
AOX4. NO SIGNS OF DISTRESS THROUGHOUT THE SHIFT. PAIN MANAGEMENT HAS BEEN ADDRESSED. REPORT GIVEN TO GAS OPERATIONS ANALYST NURSE.
[2020-04-09 20:23] VITALS: BP 148/90
[2020-04-09] MEDS: SENNOSIDES 1 TABLET PO SCH (20:42)
[2020-04-09] MEDS: ATORVASTATIN 10 MG TABLET PO SCH (20:42)
--- NOTE | 2020-04-10 03:24 | NUR ---
Received Patient in bed. AAO x4. No acute distress or SOB was noted. On O2 3 L via NC. Able to make needs known. Complained of generalized pain, rated 10/10 in numeric scale, IV Dilaudid 1 mg administered. Single lumen PICC line in her left upper arm, intact, no sign of inflammation. PICC line dressing changed. Poe catheter in place. All due medication given as ordered and well tolerated. Pain assessed and reassessed after pain medication. Safety measures maintained, fall prevention observed. Skin assessed. All needs attended promptly. Bed in locked and low position, side rails up x2 for safety, bed alarm on. Call light and frequently using items within reach. Continue to monitor and will endorse to the oncoming nurse accordingly.
[2020-04-10 05:21] VITALS: BP 143/83
[2020-04-10] MEDS: DIAZEPAM 5 MG TABLET PO SCH ×4 (06:23→23:02)
[2020-04-10] MEDS: OXYBUTYNIN CHLORIDE 5 MG TABLET PO SCH ×4 (06:23→23:02)
[2020-04-10] MEDS: PANTOPRAZOLE SODIUM 40 MG TABLET.DR PO SCH (06:23)
[2020-04-10] MEDS: HYDROMORPHONE 1 MG/1 ML DISP.SYRIN IV PRN ×4 (06:39→20:31)
--- NOTE | 2020-04-10 08:00 | NUR ---
Pt is in no acute distress. Swelling noted SITA legs +3 and UE's +3. F/c Draining clear urine. Pt states that f/c is leaking. Offered to reinsert a bigger liu catheter size. Pt refused. Repositioned f/c per pt request to stop leaking. will monitor patient. Call light is within reach.
[2020-04-10] MEDS: OMEGA-3 FATTY ACIDS/FISH OIL CAPSULE PO SCH (09:00)
[2020-04-10] MEDS: MULTIVIT, IRON, MIN NO. 8, FA TABLET PO SCH (09:00)
[2020-04-10] MEDS: DOCUSATE SODIUM 100 MG CAPSULE PO SCH ×2 (09:00→16:00)
[2020-04-10] MEDS: FUROSEMIDE 20 MG/2 ML VIAL IV SCH ×2 (09:01→20:31)
[2020-04-10] MEDS: LINEZOLID 600 MG TABLET PO SCH ×2 (09:01→20:31)
[2020-04-10] MEDS: CYCLOBENZAPRINE HCL 10 MG TABLET PO SCH ×2 (09:01→15:59)
[2020-04-10] MEDS: CELECOXIB 200 MG CAPSULE PO SCH ×2 (09:02→20:30)
[2020-04-10] MEDS: LIDOCAINE 5% PATCH TD SCH (09:02)
[2020-04-10] MEDS: METOPROLOL SUCCINATE XL 50 MG TAB.SR.24H PO SCH (09:09)
[2020-04-10] MEDS: ACETAMINOPHEN 325 MG TABLET PO PRN (09:38)
[2020-04-10 11:34] VITALS: BP 129/76
[2020-04-10 15:30] VITALS: BP 133/77
--- NOTE | 2020-04-10 15:30 | NUR ---
Pt is in no acute distress. Call light is within reach.
--- NOTE | 2020-04-10 18:43 | NUR ---
Pt's pain managed with dilaudid. Pt had f/c output 900cc. Call light is within reach.
[2020-04-10] MEDS: SENNOSIDES 1 TABLET PO SCH (20:30)
[2020-04-10] MEDS: ATORVASTATIN 10 MG TABLET PO SCH (20:31)
[2020-04-10 20:46] VITALS: BP 125/75
[2020-04-11] MEDS: HYDROMORPHONE 1 MG/1 ML DISP.SYRIN IV PRN ×4 (00:50→14:56)
--- NOTE | 2020-04-11 04:20 | NUR ---
Received Patient in bed. AAO x4. No acute distress or SOB was noted. On O2 2 L via NC. Able to make needs known. Complained of generalized pain, rated 10/10 in numeric scale, PRN IV Dilaudid 1 mg administered as ordered and was effective. Single lumen PICC line in her left upper arm, intact, no sign of inflammation. Poe catheter in place draining yellow urine. All due medication given as ordered and well tolerated. Pain assessed and reassessed after pain medication. Safety measures maintained, fall prevention observed. Skin assessed. All needs attended promptly. Bed in locked and low position, side rails up x2 for safety, bed alarm on. Call light and frequently using items within reach. Continue to monitor and will endorse to the oncoming nurse accordingly.
[2020-04-11] MEDS: DIAZEPAM 5 MG TABLET PO SCH ×3 (05:14→17:36)
[2020-04-11] MEDS: OXYBUTYNIN CHLORIDE 5 MG TABLET PO SCH ×3 (05:14→17:35)
[2020-04-11] MEDS: PANTOPRAZOLE SODIUM 40 MG TABLET.DR PO SCH (06:03)
[2020-04-11 06:21] VITALS: BP 138/76
[2020-04-11 07:34] LABS: BASOPHILS # (AUTO) 0.1 K/uL (0.0-8.0); BASOPHILS % (AUTO) 1.5 % (0.0-2.0); EOSINOPHILS # (AUTO) 0.4 K/uL (0.0-0.7); EOSINOPHILS % (AUTO) 5.9 % (0.0-7.0); HEMATOCRIT 36.6 % (31.2-41.9); HEMOGLOBIN 12.1 g/dL (10.9-14.3); LYMPHOCYTES # (AUTO) 2.6 K/uL (20.0-40.0); LYMPHOCYTES % (AUTO) 36.4 % (20.5-51.5); MEAN CORPUSCULAR HEMOGLOBIN 28.9 uug (24.7-32.8); MEAN CORPUSCULAR HGB CONC 33 g/dL (32.3-35.6); MEAN CORPUSCULAR VOLUME 87.3 fL (75.5-95.3); MONOCYTES # (AUTO) 0.5 K/uL (2.0-10.0); MONOCYTES % (AUTO) 7.4 % (0.0-11.0); NEUTROPHILS # (AUTO) 3.5 K/uL (1.8-8.9); NEUTROPHILS % (AUTO) 48.8 % (38.5-71.5); PLATELET COUNT (AUTO) 214 K/uL (179-408); RED BLOOD CELL COUNT(AUTO) 4.19 MIL/uL (3.63-4.92); WHITE BLOOD COUNT (AUTO) 7.2 K/uL (3.8-11.8)
[2020-04-11 07:42] LABS: CREATININE 0.9 mg/dL (0.6-1.3); POTASSIUM 3.1 mmol/L (3.5-5.1)
[2020-04-11] MEDS ORDERED: POTASSIUM CHLORIDE 20 MEQ TAB.PRT.SR PO ONE ×2 (08:00→09:00)
--- NOTE | 2020-04-11 08:15 | NUR ---
Received Patient in room , patient is AAO x 4, verbally able to express needs. vital signs stable. no pain during assessment. Midline on let upper arm intact and patent. F/C IN place, intact and draining well. call light at bed side, safety measures in place and will continue with care.
[2020-04-11] MEDS: CYCLOBENZAPRINE HCL 10 MG TABLET PO SCH ×2 (10:06→17:35)
[2020-04-11] MEDS: FUROSEMIDE 20 MG/2 ML VIAL IV SCH (10:06)
[2020-04-11] MEDS: CELECOXIB 200 MG CAPSULE PO SCH (10:07)
[2020-04-11] MEDS: METOPROLOL SUCCINATE XL 50 MG TAB.SR.24H PO SCH (10:07)
[2020-04-11] MEDS: MULTIVIT, IRON, MIN NO. 8, FA TABLET PO SCH (10:07)
[2020-04-11] MEDS: DOCUSATE SODIUM 100 MG CAPSULE PO SCH ×2 (10:07→17:35)
[2020-04-11] MEDS: OMEGA-3 FATTY ACIDS/FISH OIL CAPSULE PO SCH (10:07)
[2020-04-11] MEDS: LINEZOLID 600 MG TABLET PO SCH (10:08)
[2020-04-11] MEDS: LIDOCAINE 5% PATCH TD SCH (10:08)
[2020-04-11 11:35] VITALS: BP 156/76
[2020-04-11 16:00] VITALS: BP 133/61
--- NOTE | 2020-04-11 16:20 | NUR ---
Per MD notes, pt medically cleared for discharge 04/08. Facility pending [facility] clearance before patient can be transferred. Pt current wt 264#. Noted 2# wt loss x 10 days. BM+ 04/10 x 1. Skin: lower sacrum redness. Diet order: Cardiac. Continues with 100% po intake. Labs: 04/11: K 3.1L, CO2 35H, Glu 118H. Comments: Recommend continue current diet as ordered. Monitor po intake, wt Goals: Continue po intake 75-100% of meals. No significant wt changes. Addendum: 04/11/20 at [address] Amended: Links added.
--- NOTE | 2020-04-11 16:21 | NUR ---
Patient in bed and resting at this time. All due medications administered as ordered and scheduled and tolerated well. Patient on oral ATB for UTI. Patient noted with generalized edematous. on IV Lasix as ordered. BLE elevated. Patient complained of chronic generalized pain and Dilaudid 1mg IV Q 4hrs administered and effective. skin kept clean and dry. f/c draining clear yellow urine, no hematuria or sedimentation noted. All other safety measures in place, needs attended and will continue with care.
--- NOTE | 2020-04-11 18:31 | NUR ---
Patient with an order to be D/C to [facility]. Called facility and gave report to KYLAH Santa supervisor ore dressing. Patient refused for Mid line to be removed and sated it was placed in the same facility and stated they might use it for "other medications". Informed RN supervisor ore dressing at facility patient will be discharged with Midline. Discharge paper works done. All belongings checked and patient signed paper work. All other needs attended, endorsed to next shift and will continue with care.
--- NOTE | 2020-04-11 19:00 | NUR ---
Patient received in bed. Patient is awake and denies any acute distress at this time. Patient's vitals stable. Patient's LAUREN PICC Line is intact, dry and no sign of infection noted. Patient is ready for discharge to [facility]. Discharge instructions were given and reviewed with the patient. Patient demonstrated understanding. All personal belongings were checked and given to the patient. Awaiting for the service for pickers material handlers. Safety measures in place. Bed low and locked in position. Call light within reach.
[2020-04-11] MEDS: ACETAMINOPHEN 325 MG TABLET PO PRN (19:57)
--- NOTE | 2020-04-11 20:00 | NUR ---
Phone call was placed to [facility] for further instructions regarding patient's medication. Nobody is picking up. Will follow up.
--- NOTE | 2020-04-11 20:30 | NUR ---
Spoke with KYLAH Rothman, admitting nurse for patient at [facility]. Informed her regarding the patient's night medications that are due and needs to be taken. RN is aware.
--- NOTE | 2020-04-11 20:40 | NUR ---
Patient is discharged to [facility]. Vitals stable.
--- NOTE | 2020-04-11 20:40 | NUR ---
Patient is D/C to [facility] via [facility]. Vitals are stable. Patient in fair condition.
== END 2020-04-11 22:17 | DRG 690 ==
LOC: ER 15:12 → MEDSURG3 17:41
PROVIDERS: ADMIT Internal Medicine; ATTEND Nurse Practitioner Acute Care
DX: N39.0 Urinary tract infection, site not specified (principal); Z68.41 Body mass index [BMI] 40.0-44.9, adult; D68.69 Other thrombophilia; Z68.42 Body mass index [BMI] 45.0-49.9, adult; Z16.21 Resistance to vancomycin; E66.01 Morbid (severe) obesity due to excess calories; G89.29 Other chronic pain; K59.09 Other constipation; R73.03 Prediabetes; Z90.710 Acquired absence of both cervix and uterus; I10 Essential (primary) hypertension; K21.9 Gastro-esophageal reflux disease without esophagitis; I70.90 Unspecified atherosclerosis; R33.9 Retention of urine, unspecified; B95.2 Enterococcus as the cause of diseases classified elsewhere
CPT/HCPCS: 36415; 70030-TC; 71045; 83735; 84100; 84443; 85025; 85730; 87077; 87086; 93005; 93307; G0378; J0696; J1170; J1650; J1940; J2405; J7050; J7060; Q9967; U0003-CS